=== PATIENT | female | born 1975 | race Caucasian/White ===

== ENCOUNTER → 2021-02-21 07:51 | Outpatient (CLI) | payer OTHER, SELFPAY ==
--- NOTE | 2021-02-21 07:53 | BI_ITS ---
MAMMOGRAPHY - BILATERAL SCREENING REASON FOR EXAM: Female, 45 years old. Routine annual screening examination. PERTINENT HISTORY: Non-contributory. TECHNIQUE: Digital bilateral breast kenroy (3D mammographic acquisition) in the CC and MLO projections. 2-D mediolateral oblique (MLO) and craniocaudad (CC) views of both breasts were obtained. CAD: Full Field Digital Mammography with Computer Added Detection was performed. COMPARISON: Comparison is made with prior outside examination of 01/08/2019. FINDINGS: Breast Composition: There are scattered areas of fibroglandular density. There are no dominant masses or suspicious calcifications. No other significant abnormalities are identified. There has been no significant change since the prior study. BI/SCRN MAMM (CAD)W/KENROY BILAT IMPRESSION: Stable bilateral screening mammogram. Yearly follow-up mammogram recommended. (A) ASSESSMENT CATEGORY: BIRADS Category 1: Negative. A letter regarding these results will be sent to the patient by the facility within 30 days. Approximately 10% of breast cancers are not detected by mammography. A normal mammogram should not delay biopsy of a clinically suspicious abnormality. [id number] Electronically Signed: Segun Luna MD at 11:04 EST , Service support ,
== END ==
PROVIDERS: PCP Internal Medicine; Referring Provider Internal Medicine; Visit Provider Internal Medicine
DX: Z12.31 Encounter for screening mammogram for malignant neoplasm of breast (principal)
CPT/HCPCS: 77063; 77067

== ENCOUNTER → 2021-07-05 | Outpatient (CLI) | payer OTHER, SELFPAY ==
[2021-07-10 20:06] LABS: HPV APTIMA, High Risk Negative (Negative)
== END | disposition home or self-care (01) ==
LOC: LABSPEC 13:08
PROVIDERS: PCP Internal Medicine; Visit Provider Obstetrics & Gynecology
DX: Z12.4 Encounter for screening for malignant neoplasm of cervix (principal)
CPT/HCPCS: 87624; 88175; G0145

== ENCOUNTER → 2022-03-06 | Outpatient (CLI) | payer OTHER, SELFPAY ==
--- NOTE | 2022-03-06 16:05 | BI_ITS ---
MAMMOGRAPHY - BILATERAL SCREENING REASON FOR EXAM: Female, 46 years old. Routine annual screening examination. PERTINENT HISTORY: Aunt with breast cancer. TECHNIQUE: Digital bilateral breast kenroy (3D mammographic acquisition) in the CC and MLO projections. 2-D mediolateral oblique (MLO) and craniocaudad (CC) views of both breasts were obtained. CAD: Full Field Digital Mammography with Computer Added Detection was performed. COMPARISON: Comparison is made with prior study dated 02/21/2021. FINDINGS: Breast Composition: There are scattered areas of fibroglandular density. There are no dominant masses or suspicious calcifications. Stable small benign appearing bilateral axillary nodes. No other significant abnormalities are identified. There has been no significant change since the prior study. BI/SCRN MAMM (CAD)W/KENROY BILAT IMPRESSION: Stable bilateral screening mammogram. Yearly follow-up mammogram recommended. (A) ASSESSMENT CATEGORY: BIRADS Category 2: Benign. A letter regarding these results will be sent to the patient by the facility within 30 days. Approximately 10% of breast cancers are not detected by mammography. A normal mammogram should not delay biopsy of a clinically suspicious abnormality. [id number] Electronically Signed: Segun Luna MD at 8:29 EST ,
== END | disposition home or self-care (01) ==
LOC: OPBI 16:03
PROVIDERS: PCP Internal Medicine; Referring Provider Obstetrics & Gynecology; Visit Provider Obstetrics & Gynecology
DX: Z12.31 Encounter for screening mammogram for malignant neoplasm of breast (principal); Z80.3 Family history of malignant neoplasm of breast
CPT/HCPCS: 77063; 77067

== ENCOUNTER → 2022-03-21 | Outpatient (CLI) | payer OTHER, SELFPAY ==
[2022-03-21 11:27] LABS: Absolute Lymphocyte Count 2.83 X10^3/uL (0.83-4.51); Absolute Neutrophil Count 3.1 X10^3/uL (2.0-7.7); Basophil# 0.04 X10^3/uL; Basophil% 0.6 % (0-1); Eosinophil# 0.08 X10^3/uL; Eosinophils% 1.2 % (0-5); Hematocrit 41.3 % (37-47); Hemoglobin 13.8 g/dL (12.0-15.0); Lymphocyte # 2.83 X10^3/ul (0.83-4.51); Lymphocyte % 43.6 % (19-41); Mean Corp Hgb Conc 33.4 g/dL (32-36); Mean Corpuscular Hgb 30.7 pg (27.0-32.0); Mean Platelet Vol. 9.9 fl (6.2-12.0); Monocyte# 0.48 X10^3/uL; Monocyte% 7.4 % (0-10); NRBC Flagged by Analyzer 0 % (0-5); Neutrophil # 3.05 X10^3/uL (2.7-7.7); Platelet Count 320 K/mm3 (150-450); RBC Distribution Width CV 12.7 % (11.6-14.6); RBC Distribution Width SD 43.3 fl (35.1-43.9); Red Blood Count 4.49 M/mm3 (4.2-5.4); White Blood Count 6.5 K/mm3 (4.4-11.0)
[2022-03-21 12:06] LABS: ALB/GLOB Ratio 0.9 RATIO (0.9-2.4); AST(SGOT) 43 U/L (15-37); Alanine Aminotransfer ALT/SGPT 72 U/L (13-56); Albumin, Serum 3.7 g/dL (3.2-5.0); Alkaline Phosphatase 57 U/L (45-117); Anion Gap 5 (5-15); BUN 10 mg/dL (7-18); BUN/Creat Ratio 16.8 RATIO (10-20); Calcium,Total 9.1 mg/dL (8.5-10.1); Chloride 106 mmol/L (98-107); Cholesterol 178 mg/dL (200); EST Glomerular Filtration Rate 114 mL/min (>60); Est Glom Filt Rate - Afr Amer 139 mL/min (>60); Glucose 95 mg/dL (74-106); High Density Lipoprotein 58 mg/dL; Potassium 4.1 mmol/L (3.5-5.1); Protein, Total 7.7 g/dL (6.4-8.2); Sodium Level 139 mmol/L (136-145); Triglycerides 193 mg/dL; Very Low Density Lipoprotein 39 mg/dL (5-40)
== END | disposition home or self-care (01) ==
LOC: LAB 10:20
PROVIDERS: PCP Internal Medicine; Referring Provider Internal Medicine; Visit Provider Internal Medicine
DX: Z00.00 Encounter for general adult medical examination without abnormal findings (principal)
CPT/HCPCS: 36415; 80053; 80061; 85025

== ENCOUNTER → 2022-03-27 | Outpatient (CLI) | payer OTHER, SELFPAY ==
--- NOTE | 2022-03-27 10:30 | EMB_PTH ---
PATIENT: JEANNIE SHANE LOC: [facility] U#:[id number] AGE/SX: 46/F ROOM: RE03/27/[address]: AMELIA Baron : 1975 BED: DIS: 03/27/2022 SPEC #: [id number] RECD: 03/27/22 11:35 STATUS: DANTE REShakira #: [id number] JOSLYN: 03/27/22 10:[address]: Rosangela Brar NP DEPT: SURGICAL PATHOLOGY RECD BY: Azalea Mijares ENTERED: 03/27/22 13:55 SP TYPE: ENDOM BX/C BETO DR: Dr. Errol Mccracken MD Tissues: Endometrium, NOS Procedures: Surgery Specimen Level IV HEADER OPERATION: Endometrial biopsy PRE-OP DIAGNOSIS: Abnormal uterine bleeding TISSUE SUBMITTED: Endometrial tissue MICROSCOPIC DIAGNOSIS Endometrial biopsy: Proliferative endometrium and blood clots. See comment. SANCHEZ:angel 03/28/2022 COMMENT The specimen predominantly consists of blood clots. MICROSCOPIC DESCRIPTION Slides are reviewed. GROSS DESCRIPTION Received is one container labeled with the patient's name and not further designated. The specimen consists of multiple irregular fragments of dark lopez-red soft tissue that in aggregate measure 6 x 5 x 0.2 cm. The specimen is totally submitted in two cassettes. / AM:angel 03/27/2022 :5 [facility]: [id number]
== END | disposition home or self-care (01) ==
LOC: LABSPEC 11:39
PROVIDERS: PCP Internal Medicine; Referring Provider Nurse Practitioner Women's Health; Visit Provider Nurse Practitioner Women's Health
DX: N93.9 Abnormal uterine and vaginal bleeding, unspecified (principal)
CPT/HCPCS: 88305

== ENCOUNTER → 2022-03-28 | Outpatient (CLI) | payer OTHER, SELFPAY ==
[2022-03-28 17:40] LABS: Hepatitis B Surface Antigen Non-Reactive (Nonreactive); Hepatitis C Antibody Non-Reactive (Nonreactive)
== END | disposition home or self-care (01) ==
LOC: BIMLAB 13:03
PROVIDERS: PCP Internal Medicine; Referring Provider Internal Medicine; Visit Provider Internal Medicine
DX: R74.8 Abnormal levels of other serum enzymes (principal)
CPT/HCPCS: 36415; 86803; 87340

== ENCOUNTER → 2022-04-11 | Outpatient (CLI) | payer OTHER, SELFPAY ==
--- NOTE | 2022-04-11 12:24 | US_ITS ---
STUDY: ULTRASOUND OF THE FEMALE PELVIS - COMPLETE REASON FOR EXAM: Female, 46 years old. BLEEDING LMP: 03/20/2022. TECHNIQUE: Transabdominal and Transvaginal TECHNICAL QUALITY: Adequate. COMPARISON: None. FINDINGS: The uterus is retroverted and is in a midline position. The uterus measures 10.5 cm x 5.9 cm x 5.6 cm. There is a Nabothian cyst of the cervix. The endometrium measures 6 mm in thickness, and is hyperechoic. There is no demonstrated endometrial mass. Multiple uterine fibroids are seen. The largest measures 3.6 x 3.9 signed by 4.1 cm. This is in the fundal portion of the uterus. I.U.D. - The patient does not have an I.U.D. The right ovary is visualized. The right ovary measures 2.4 cm x 1.7 cm x 1.3 cm. There is no right ovarian cyst or ovarian mass. There is no visualized right adnexal mass or complex lesion. There is normal arterial and normal venous vascularity. The left ovary is visualized. The left ovary measures 2.8 cm x 1 cm x 1.2 cm. There is no left ovarian cyst or ovarian mass. There is no visualized left adnexal mass or complex lesion. There is normal arterial and normal venous vascularity. There is no fluid in the cul-de-sac. The pre void volume of the bladder was 140 ml. US/Pelvic (Non ) IMPRESSION: Enlarged fibroid uterus. Electronically Signed: Segun Luna MD at 15:49 EST ,
== END | disposition home or self-care (01) ==
LOC: OPUS 12:21
PROVIDERS: PCP Internal Medicine; Referring Provider Nurse Practitioner Women's Health; Visit Provider Nurse Practitioner Women's Health
DX: D25.9 Leiomyoma of uterus, unspecified (principal); Z86.018 Personal history of other benign neoplasm; N93.9 Abnormal uterine and vaginal bleeding, unspecified
CPT/HCPCS: 76830; 76856

== ENCOUNTER → 2022-07-22 | Outpatient (CLI) | payer OTHER, SELFPAY ==
--- NOTE | 2022-07-22 08:18 | US_ITS ---
STUDY: ULTRASOUND OF THE FEMALE PELVIS - COMPLETE REASON FOR EXAM: Female, 46 years old. AUB - follow up fibroids LMP: June 27, 2022. TECHNIQUE: Transabdominal and Transvaginal TECHNICAL QUALITY: Adequate. COMPARISON: Comparison is made with prior study dated April 11, 2022. FINDINGS: The uterus is anteverted and is in a midline position. The uterus measures 10.4 cm x 7.3 cm x 5.7 cm. Normal uterine cervix. The endometrium measures 3.0 mm in thickness, and is hyperechoic. There is no demonstrated endometrial mass. Multiple fibroids are seen. The largest fibroid measures 4.4 cm x 4.3 cm x 3.3 cm. I.U.D. - The patient does not have an I.U.D. The right ovary is visualized. The right ovary measures 2.5 cm x 1.4 cm x 1.5 cm. There is no right ovarian cyst or ovarian mass. There is no visualized right adnexal mass or complex lesion. There is normal arterial and normal venous vascularity. The left ovary is visualized. The left ovary measures 1.6 cm x 1 cm x 1.7 cm. There is no left ovarian cyst or ovarian mass. There is no visualized left adnexal mass or complex lesion. There is normal arterial and normal venous vascularity. There is no fluid in the cul-de-sac. The pre void volume of the bladder was 236 ml. US/Pelvic w/ Transvaginal IMPRESSION: Multiple uterine fibroids. The largest measures 4.4 cm x 4.3 cm x 3.3 cm. Electronically Signed: Segun Luna MD at 14:21 EDT ,
== END | disposition home or self-care (01) ==
LOC: OPUS 08:17
PROVIDERS: PCP Internal Medicine; Referring Provider Nurse Practitioner Women's Health; Visit Provider Nurse Practitioner Women's Health
DX: N93.9 Abnormal uterine and vaginal bleeding, unspecified (principal)
CPT/HCPCS: 76830; 76856

== ENCOUNTER → 2023-03-07 | Outpatient (CLI) | payer OTHER, SELFPAY ==
--- NOTE | 2023-03-07 12:10 | BI_ITS ---
MAMMOGRAPHY - BILATERAL SCREENING 3-D TOMOSYNTHESIS REASON FOR EXAM: Female, 47 years old. Routine screening PERTINENT HISTORY: Aunt with breast cancer.. TECHNIQUE: 2-D mammograms and 3-D Tomosynthesis of the breast (s) were performed. CAD was performed. COMPARISON: 02/21/2021 FINDINGS: The breast composition is composed of scattered fibroglandular density. Scattered benign calcifications are seen. No dense spiculated masses or suspicious microcalcifications are identified. No architectural distortion is identified. There is no skin thickening or retraction. There has been no significant change since the prior study. BI/SCRN MAMM (CAD)W/KENROY BILAT IMPRESSION: No mammographic signs of malignancy. Routine yearly mammograms recommended. ASSESSMENT CATEGORY: BIRADS Category 1: Negative. A letter regarding these results will be sent to the patient by the facility within 30 days. FOLLOW UP RECOMMENDATION: Yearly follow up mammogram recommended. (A) Approximately 10% of breast cancers are not detected by mammography. A normal mammogram should not delay biopsy of a clinically suspicious abnormality. Electronically Signed: Serg Solano MD at 12:07 EST ,
== END | disposition home or self-care (01) ==
LOC: OPBI 12:10
PROVIDERS: PCP Internal Medicine; Referring Provider Obstetrics & Gynecology; Visit Provider Obstetrics & Gynecology
DX: Z12.31 Encounter for screening mammogram for malignant neoplasm of breast (principal); Z80.3 Family history of malignant neoplasm of breast
CPT/HCPCS: 77063; 77067

== ENCOUNTER 2023-03-20 13:18 | Outpatient (REF) | payer SELFPAY ==
[2023-03-20 13:19] VITALS: BP 128/74; PULSE 67; RESP 18; TEMP 36.3; O2SAT 100; BMI 31.8
--- NOTE | 2023-03-20 13:51 | EX.ED.DYSGE1 ---
HPI History of Present Illness Chief Complaint: Occup Expose Informant: patient Narrative Narrative: She is a 39-year-old female presenting with work related needlestick to her right hand. 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 She was getting handed a used large bore introducer needle for a vascular procedure when it somehow fell and stuck her right hand. She was wearing 2 pairs of gloves. She immediately took her gloves off wash her hands with soap and alcohol. She received a single puncture wound at the base of the right index finger. Denies any other complaints. As far she is aware the patient is low risk for blood-borne pathogens. Was sent to the ER per occupational health protocol for needlestick injury. [facility] Medical History Colon cancer screening Elevated liver enzymes History of hepatitis History of pneumonia Hypertension Preventative health residential Medications multivitamin-ferrous fumarate-folic acid 18 mg-400 mcg tablet (Centrum Complete) 1 tab PO DAILY 01/11/21 [History Last Taken Unknown] levonorgestrel 0.15 mg-ethinyl estradiol 0.03 mg tablet 1 tab PO DAILY #84 tabs 05/01/22 [Rx Last Taken Unknown] Allergy/AdvReac Type Severity Reaction Status Date / Time No Known Allergies Allergy Verified 03/20/23 13:19 Family History Mother Arthritis Blood clot in vein Cervical cancer Diabetes Aunt Diabetes Father Myocardial infarction, Onset Age: 46 Grandmother Thyroid disorder Surgical History History of cervical polypectomy Social History Smoking Status: Never smoker alcohol intake: never substance use type: does not use what type of physical activity do you participate in: none seatbelt use: always do you feel safe at home: Yes additional social history: - 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 [employer] ROS ROS ED Constitutional Constitutional ED: Denies chills or fever(s) Gastrointestinal Gastrointestinal: Denies nausea or vomiting Musculoskeletal Musculoskeletal: Denies arthralgias or myalgias Integumentary Reports other Details: Needlestick injury to right hand Hematologic/Lymphatic Hematologic/Lymphatic: Denies easy bleeding or easy bruising EXAM Physical Exam Const Vital Signs: 03/20/23 13:19 Temperature 97.3 F L Temperature Source Temporal Pulse Rate 67 Respiratory Rate 18 Blood Pressure 128/74 H Blood Pressure Mean 92 Pulse Ox 100 Oxygen Delivery Method Room Air Positive well nourished and well developed General Appearance ED: well developed and NAD HEENT Negative for trauma Neck supple Chest Wall inspection of chest normal Resp normal respiratory effort Extremity normal to inspection General Extremety ED: Negative for edema or tenderness General Extremity: Negative for edema Neuro oriented x3 Sensorium / Orientation: alert Psych mental status grossly normal Skin Skin Narrative: Needlestick injury to the palmar aspect of the proximal second finger, no active bleeding. MDM MDM MDM Narrative Medical decision making narrative: Evaluated for occupational needlestick/exposure to blood-borne pathogen. Protocol orders placed by nursing staff. At this time patient is comfortable deferring prophylactic antiviral therapy. Will follow-up with occupational health. Discharge Plan Triage Chief Complaint: Occup Expose ED Provider: Charlee Razo Dx/Rx/DC Orders Clinical Impression: Needle stick injury of finger Instructions: ED NEEDLE STICK Health Care Worker Prescriptions: No Action Centrum Complete 18-400 mg-mcg tablet 1 tab PO DAILY levonorgestrel-ethinyl estrad 0.15-0.03 mg tablet 1 tab PO DAILY Qty: 84 4RF Rx Instructions: take active pills only for 3 months at a time. Primary Care Provider: Errol Mccracken Referrals: Errol Mccracken MD [Primary Care Provider] - [facility] [Non-Staff] - As Needed Disposition Disposition: Home, Self Care
[2023-03-20 14:55] LABS: HIV - WCH Non-Reactive (Nonreactive); Hepatitis B Surface Antibody Non-Reactive; Hepatitis B Surface Antigen Non-Reactive (Nonreactive); Hepatitis C Antibody Non-Reactive (Nonreactive)
== END 2023-03-20 14:10 | disposition home or self-care (01) ==
LOC: ED 13:18
PROVIDERS: PCP Internal Medicine; Visit Provider Emergency Medicine
DX: S61.230A Puncture wound without foreign body of right index finger without damage to nail, initial encounter (principal); Z77.21 Contact with and (suspected) exposure to potentially hazardous body fluids; W46.0XXA Contact with hypodermic needle, initial encounter
CPT/HCPCS: 36415; 86703; 86706; 86803; 87340

== ENCOUNTER 2023-07-04 05:23 | Day surgery (SDC) | payer OTHER, SELFPAY ==
--- NOTE | 2023-07-04 | GASB_PTH ---
PATIENT: JEANNIE SHANE LOC: EN U#:[id number] AGE/SX: 47/F ROOM: RE07/04/[address]: Dr. Eduard Roblero DO : 1975 BED: DIS: 07/04/2023 SPEC #: [id number] RECD: 07/04/23 09:29 STATUS: DANTE RAZIA #: [id number] JOSLYN: 07/04/23 00:[address]: Eduard Roblero DEPT: SURGICAL PATHOLOGY RECD BY: Stanislav Tirado ENTERED: 07/04/23 09:30 SP TYPE: Gastric Bx OTHR DR: Dr. Errol Mccracken MD Tissues: A - Duodenum, NOS B - Gastric mucous membrane C - Esophageal mucous membrane D - Ileum, NOS Procedures: Special Stain Group II Surgery Specimen Level IV Alcian Blue/PAS (control) HEADER OPERATION: Colonoscopy, EGD, biopsy PRE-OP DIAGNOSIS: Gastroesophageal reflux disease, Colon cancer screening TISSUE SUBMITTED: A- Duodenum biopsy, B- Gastric body biopsy, C- Distal esophagus biopsy, D- Terminal ileum biopsy MICROSCOPIC DIAGNOSIS A. Duodenum, biopsy: Mild non-specific chronic inflammation. B. Gastric body, biopsy: Chronic gastritis, moderately severe. See comment. C. Distal esophagus, biopsy: Gastroesophageal junction with mild chronic inflammation and focal acute inflammation. No evidence of goblet cell metaplasia. See comment D. Terminal ileum, biopsy: No pathologic change. AM/mr 07/07/2023 COMMENT B. The results of immunohistochemistry for Helicobacter pylori will be reported separately ([id number]). C. Alcian blue/PAS stain with matched control supports the above diagnosis. MICROSCOPIC DESCRIPTION Slides are reviewed. GROSS DESCRIPTION A. Received in fixative is one container labeled with the patient's name and designated Duodenum biopsy. The specimen consists of multiple irregular fragments of light lopez soft tissue that in aggregate measure 1.0 x 0.3 x 0.1 cm. The specimen is totally submitted in one cassette. B. Received in fixative is one container labeled with the patient's name and designated Gastric body biopsy. The specimen consists of multiple irregular fragments of light lopez soft tissue that in aggregate measure 1.5 x 0.4 x 0.1 cm. The specimen is totally submitted in one cassette. C. Received in fixative is one container labeled with the patient's name and designated Distal esophagus biopsy. The specimen consists of multiple irregular fragments of light lopez soft tissue that in aggregate measure 1.0 x 0.3 x 0.1 cm. The specimen is totally submitted in one cassette. D. Received in fixative is one container labeled with the patient's name and designated Terminal ileum biopsy. The specimen consists of two irregular fragments of light lopez soft tissue that in aggregate measure 0.6 x 0.3 x 0.1 cm. The specimen is totally submitted in one cassette. SANCHEZ/ 07/04/2023 TC:3 CPT:88904v5,57716
[2023-07-04 05:54] LABS: Internal QC Validated? YES +Cl - CLEAR BKGD; Pregnancy, Urine Negative Negative
[2023-07-04 06:08] VITALS: BP 125/94; PULSE 71; RESP 16; TEMP 37.1; O2SAT 98; BMI 31.3
[2023-07-04] MEDS: Lactated Ringers 1,000 ML 15 ML IV (06:15)
--- NOTE | 2023-07-04 06:30 | IMM_PTH ---
PATIENT: JEANNIE SHANE LOC: EN U#:[id number] AGE/SX: 47/F ROOM: RE07/04/[address]: Dr. Eduard Roblero DO : 1975 BED: DIS: 07/04/2023 SPEC #: [id number] RECD: 07/04/23 10:21 STATUS: DANTE REQ #: [id number] JOSLYN: 07/04/23 06:[address]: Eduard Roblero DEPT: IMMUNOHISTOCHEMISTRY RECD BY: Angel Mcpherson ENTERED: 07/04/23 10:22 SP TYPE: IMMUNO OTHR DR: Dr. Errol Mccracken MD Tissues: B - Stomach, NOS Procedures: H Pylori (initial) PHYSICIAN & INSTITUTION [place] [id number] SPECIMEN INFORMATION: Tissue Source: B- Gastric body Clinical Info: Gastroesophageal reflux disease, colon cancer screening Specimen Number: [id number] CPT code: 55512 METHODOLOGY: Deparaffinized sections of prefer/formalin-fixed tissue or PAP/DQ stained slides are incubated with monoclonal/polyclonal antibodies/oligonucleotide probes. Localization is made via biotin free immunoperoxidase method. Appropriate controls are performed and reacted as expected. Results on target cell population are indicated in the following table: RESULTS: ANTIBODY / CLONE RESULT Block B H Pylori (polyclonal) positive These tests were developed and their performance characteristics determined by [facility]. They may not have been cleared or approved by the U.S. Food and Drug Administration. The FDA has determined that such clearance or approval is not necessary. The above immunohistochemical/dualISH markers are ordered and reviewed by the Pathologist. INTERPRETATION: B. Gastric body, biopsy: Positive for abundant H. pylori organisms. CHRIS/ 07/07/2023
--- NOTE | 2023-07-04 06:41 | HP.PCM_ITS ---
History and Physical Date of Admission: 07/04/23 47 F who presents to the office today for initial consult. Pt reports long hx of heartburn. Worse when eating sour, spicy or fried foods. No dysphagia, nausea, vomiting or abdominal pain. Has not taken any meds rx'd or OTC. No other GI concerns. Needs screening colonscopy. ROS Const Constitutional: No fatigue ENT ENT: No difficulty swallowing Gastro GI: Positive for constipation; No abdominal pain, belching, bloating, change in bowel habits, change in stool character, coffee ground emesis, cramping, diarrhea, heartburn, difficulty swallowing, feeling full early, excessive flatus, incontinent of stools, Vomiting blood/hematemesis, Blood in stool, loose stools, Black,tarry stools, nausea/dyspepsia, pain with swallowing, vomiting or other Musc Musculoskeletal: No joint pain Skin Skin: No yellowing of the eye or itchy eyes Psych Psychiatric: No anxiety and No depression Endo Endocrine: No fatigue Aller/Imm Allergy/Immunologic: No itchy eyes Torres/Lymp Hematologic/Lymphatic: No easy bleeding or easy bruising Exam Const General: cooperative, comfortable and no acute distress Orientation: alert, awake and oriented x3 HENMT Head: normal to inspection, normocephalic and atraumatic Ears: hearing grossly normal bilaterally Eyes General: appearance normal, both eyes and all related structures Neck Neck: normal visual inspection, full ROM and supple Resp Effort & Inspection: normal respiratory effort and able to speak in complete sentences Auscultation: Bilateral: Clear to Auscultation Cardio Rate: regular rate Rhythm: regular rhythm Heart Sounds: S1 normal and S2 normal GI Palpation: soft (Nontender, no palpable organomegaly) Neuro General: patient alert, patient awake, patient oriented x3, moves all extremities and CN's II-XI intact bilaterally Extrem General: no clubbing, cyanosis or edema Psych Appearance: grossly normal Mental Status: mental status grossly normal Mood: congruent mood Affect: normal affect Quality Reporting Tobacco Screening ([facility] 138) Smoking Status: Never smoker Assessment and Plan Assessment and Plan (1) Gastroesophageal reflux disease: Plan: She does have signs and symptoms of gastroesophageal reflux disease due to the fact that she has problems with certain foods including acidic foods and not acidic foods. Since she is undergoing colonoscopy we will perform an upper endoscopy to evaluate her for Stephenson's esophagus, structural disease such as a hiatal hernia, peptic ulcer disease and any signs of villous atrophy. (2) Colon cancer screening: Status: Acute Plan: She will undergo colorectal screening. She was explained alternatives, risk, benefits including not withstanding bleeding, infection, sepsis, perforation, need for emergent surgery and . She will have an ASA of 2. I have examined the patient and the H&P has been reviewed. There are no clinical changes since date of exam.
[2023-07-04 07:19] VITALS: BP 103/58; BP 125/94; PULSE 61; RESP 16; TEMP 36.2; O2SAT 98
[2023-07-04 07:24] VITALS: BP 109/62; BP 125/94; PULSE 53; RESP 16; O2SAT 99
--- NOTE | 2023-07-04 07:28 | OP.EGD_ITS ---
Patient Name: oLve Sanz Procedure Date: 07/04/2023 6:28 AM Date of : 1975 Age: 47 Procedure: Upper GI endoscopy Indications: Epigastric abdominal pain, Heartburn Providers: Eduard Roblero DO Referring MD: Erorl Mccracken MD Medicines: Monitored Anesthesia Care Patient Profile: This is a 47 year old female. Refer to note in patient chart for documentation of history and physical. Patient has symptoms of chronic epigastric abdominal pain and chronic heartburn. Complications: No immediate complications. Procedure: Pre-Anesthesia Assessment: - Prior to the procedure, a History and Physical was performed, and patient medications and allergies were reviewed. The risks and benefits of the procedure and the sedation options and risks were discussed with the patient. All questions were answered and informed consent was obtained. Patient identification and proposed procedure were verified by the physician in the pre-procedure area. Mental Status Examination: alert and oriented. Airway Examination: normal oropharyngeal airway and neck mobility. Prophylactic Antibiotics: The patient does not require prophylactic antibiotics. Prior Anticoagulants: The patient has taken no anticoagulant or antiplatelet agents. ASA Grade Assessment: II - A patient with mild systemic disease. After reviewing the risks and benefits, the patient was deemed in satisfactory condition to undergo the procedure. The anesthesia plan was to use monitored anesthesia care (MAC). Immediately prior to administration of medications, the patient was re-assessed for adequacy to receive sedatives. The heart rate, respiratory rate, oxygen saturations, blood pressure, adequacy of pulmonary ventilation, and response to care were monitored throughout the procedure. The physical status of the patient was re-assessed after the procedure. After obtaining informed consent, the endoscope was passed under direct vision. Throughout the procedure, the patient's blood pressure, pulse, and oxygen saturations were monitored continuously. The colonoscope was introduced through the mouth, and advanced to the second part of duodenum. The upper GI endoscopy was accomplished without difficulty. The patient tolerated the procedure well. Scope In: 6:45:41 AM Scope Out: 6:54:08 AM Total Procedure Duration Time 0 hours 8 minutes 27 seconds Findings: The Z-line was irregular and was found 40 cm from the incisors. Biopsies were taken with a cold forceps for histology. Verification of patient identification for the specimen was done. Estimated blood loss was minimal. Patchy mild inflammation characterized by erythema was found in the gastric body. Biopsies were taken with a cold forceps for histology. Verification of patient identification for the specimen was done. Estimated blood loss was minimal. Biopsies were taken with a cold forceps for Helicobacter pylori testing. Verification of patient identification for the specimen was done. Estimated blood loss was minimal. No gross lesions were noted in the duodenal bulb and in the first portion of the duodenum. Biopsies were taken with a cold forceps for histology. Verification of patient identification for the specimen was done. Estimated blood loss was minimal. Impression: - Z-line irregular, 40 cm from the incisors. Biopsied. - Chronic gastritis. Biopsied. - No gross lesions in the duodenal bulb and in the first portion of the duodenum. Biopsied. Recommendation: - Discharge patient to home. - Resume previous diet. - Continue present medications. - Await pathology results. Procedure Code(s): --- Professional --- 64689, Esophagogastroduodenoscopy, flexible, transoral; with biopsy, single or multiple CPT copyright 2021 [employer]. All rights reserved. The codes documented in this report are preliminary and upon detasseling crew supervisor review may be revised to meet current compliance requirements. Eduard Roblero DO 07/04/2023 7:27:51 AM This report has been signed electronically. Number of Addenda: 0 Note Initiated On: 07/04/2023 6:28 AM
[2023-07-04 07:29] VITALS: BP 107/70; BP 125/94; PULSE 51; RESP 16; O2SAT 100
--- NOTE | 2023-07-04 07:29 | OP.CCLET_ITS ---
07/04/2023 Errol Mccracken MD [address] [place] [address] [place] [address] Re : Upper GI endoscopy procedure for Love Sanz Dear Dr. Mccracken This procedure was performed on Tuesday, July 04, 2023. My impressions and recommendations are as follows: Impressions : - Z-line irregular, 40 cm from the incisors. Biopsied. - Chronic gastritis. Biopsied. - No gross lesions in the duodenal bulb and in the first portion of the duodenum. Biopsied. Recommendations : - Discharge patient to home. - Resume previous diet. - Continue present medications. - Await pathology results. My findings are described in the full procedure note, which is enclosed. If I can be of further assistance, please feel free to contact me at . Sincerely, Eduard Roblero, 07/04/2023 7:27:51 AM This report has been signed electronically.
--- NOTE | 2023-07-04 07:30 | OP.CCLET_ITS ---
07/04/2023 Errol Mccracken MD [address] [place] [address] [place] [address] Re : Colonoscopy procedure for Love Sanz Dear Dr. Mccracken This procedure was performed on Tuesday, July 04, 2023. My impressions and recommendations are as follows: Impressions : - Hemorrhoids found on perianal exam. - The entire examined colon is normal. - Mild inflammation was found in the ileum secondary to ileitis. Biopsied. Recommendations : - Discharge patient to home. - Resume previous diet. - Continue present medications. - Await pathology results. - Repeat colonoscopy in 10 years for screening purposes. My findings are described in the full procedure note, which is enclosed. If I can be of further assistance, please feel free to contact me at . Sincerely, Eduard Friend, 07/04/2023 7:30:25 AM This report has been signed electronically.
--- NOTE | 2023-07-04 07:30 | OP.COLON_ITS ---
Patient Name: Love Sanz Procedure Date: 07/04/2023 6:54 AM Date of : 1975 Age: 47 Procedure: Colonoscopy Indications: Screening for colorectal malignant neoplasm Providers: Eduard Roblero DO Referring MD: Errol Mccracken MD Medicines: Monitored Anesthesia Care Patient Profile: This is a 47 year old female. Refer to note in patient chart for documentation of history and physical. Patient has symptoms of chronic epigastric abdominal pain and chronic heartburn. Last Colonoscopy: none. The patient's first colonoscopy is today. Complications: No immediate complications. Procedure: Pre-Anesthesia Assessment: - Prior to the procedure, a History and Physical was performed, and patient medications and allergies were reviewed. The risks and benefits of the procedure and the sedation options and risks were discussed with the patient. All questions were answered and informed consent was obtained. Patient identification and proposed procedure were verified by the physician in the pre-procedure area. Mental Status Examination: alert and oriented. Airway Examination: normal oropharyngeal airway and neck mobility. Prophylactic Antibiotics: The patient does not require prophylactic antibiotics. Prior Anticoagulants: The patient has taken no anticoagulant or antiplatelet agents. ASA Grade Assessment: II - A patient with mild systemic disease. After reviewing the risks and benefits, the patient was deemed in satisfactory condition to undergo the procedure. The anesthesia plan was to use monitored anesthesia care (MAC). Immediately prior to administration of medications, the patient was re-assessed for adequacy to receive sedatives. The heart rate, respiratory rate, oxygen saturations, blood pressure, adequacy of pulmonary ventilation, and response to care were monitored throughout the procedure. The physical status of the patient was re-assessed after the procedure. After I obtained informed consent, the scope was passed under direct vision. Throughout the procedure, the patient's blood pressure, pulse, and oxygen saturations were monitored continuously. The colonoscope was introduced through the anus and advanced to the terminal ileum. The colonoscopy was performed without difficulty. The patient tolerated the procedure well. The quality of the bowel preparation was adequate. The terminal ileum, ileocecal valve, appendiceal orifice, and rectum were photographed. Scope In: 6:56:36 AM Scope Withdrawal Time 0 hours 11 minutes 50 seconds Scope Out: 7:12:00 AM Total Procedure Duration Time 0 hours 15 minutes 24 seconds Findings: Hemorrhoids were found on perianal exam. The colon (entire examined portion) appeared normal. Localized mild inflammation characterized by erosions, erythema and friability was found in the terminal ileum. Biopsies were taken with a cold forceps for histology. Verification of patient identification for the specimen was done. Estimated blood loss was minimal. Impression: - Hemorrhoids found on perianal exam. - The entire examined colon is normal. - Mild inflammation was found in the ileum secondary to ileitis. Biopsied. Recommendation: - Discharge patient to home. - Resume previous diet. - Continue present medications. - Await pathology results. - Repeat colonoscopy in 10 years for screening purposes. Procedure Code(s): --- Professional --- 18604, Colonoscopy, flexible; with biopsy, single or multiple CPT copyright 2021 [employer]. All rights reserved. The codes documented in this report are preliminary and upon mule developer review may be revised to meet current compliance requirements. Eduard Roblero DO 07/04/2023 7:30:25 AM This report has been signed electronically. Number of Addenda: 0 Note Initiated On: 07/04/2023 6:54 AM
[2023-07-04 07:35] VITALS: BP 116/75; BP 125/94; PULSE 56; RESP 16; TEMP 36.5; O2SAT 100
[2023-07-04 07:50] VITALS: BP 125/94
== END 2023-07-04 08:06 | disposition home or self-care (01) ==
LOC: EN 05:25 → AC 05:25
PROVIDERS: Anesthesiology; PCP Internal Medicine; Referring Provider Internal Medicine; Visit Provider Internal Medicine Gastroenterology
PROC: 0DJD8ZZ Inspection of Lower Intestinal Tract, Via Natural or Artificial Opening Endoscopic (ICD-10-PCS; CPT 45378; principal; 2023-07-04 06:25)
DX: Z12.11 Encounter for screening for malignant neoplasm of colon (principal); K21.9 Gastro-esophageal reflux disease without esophagitis; B96.81 Helicobacter pylori [H. pylori] as the cause of diseases classified elsewhere; K29.50 Unspecified chronic gastritis without bleeding; K64.9 Unspecified hemorrhoids; K52.9 Noninfective gastroenteritis and colitis, unspecified
CPT/HCPCS: 45380; 43239; 81025; 88305; 88313; 88342; J7120; J2405

== ENCOUNTER → 2023-10-10 | Outpatient (CLI) | payer OTHER, SELFPAY ==
[2023-10-12 15:07] LABS: H. PYLORI STOOL AG Negative (Negative)
== END | disposition home or self-care (01) ==
PROVIDERS: PCP Internal Medicine; Visit Provider Internal Medicine Gastroenterology
DX: A04.8 Other specified bacterial intestinal infections (principal)
CPT/HCPCS: 87338

== ENCOUNTER → 2023-10-14 | Outpatient (CLI) | payer OTHER, SELFPAY | END | disposition home or self-care (01) | LOC: LABSPEC 16:34 | PROVIDERS: PCP Internal Medicine; Referring Provider Obstetrics & Gynecology; Visit Provider Obstetrics & Gynecology | DX: N89.8 Other specified noninflammatory disorders of vagina (principal) | CPT/HCPCS: 87070; 87205 ==

== ENCOUNTER → 2023-10-31 | Outpatient (CLI) | payer OTHER, SELFPAY ==
--- NOTE | 2023-10-31 16:09 | US_ITS ---
EXAM: US PELVIS TRANSABDOMINAL LIMITED AND TRANSVAGINAL CLINICAL INDICATION: fibroid uterus TECHNIQUE: Transabdominal (limited) and transvaginal pelvic ultrasound was performed with grayscale and color Doppler imaging. Transvaginal imaging was used for better evaluation of the endometrium and adnexa. COMPARISON: 07/22/2022 FINDINGS: UTERUS/CERVIX: There are multiple predominantly intramural uterine fibroids identified, the 3 largest measure 4.0, 1.8, and 1.9 cm respectively. Subjectively, similar appearance of the uterus compared to the prior ultrasound. Anteverted. The uterus measures 10.1 x 6.7 x 5.8 cm. The endometrial stripe measures 0.2 cm in thickness. RIGHT OVARY: No significant abnormality. Blood flow is present in the right ovary. The right ovary measures 0.9 x 1.1 x 1.4 cm. LEFT OVARY: No significant abnormality. Blood flow is present in the left ovary. The left ovary measures 2.2 x 1.2 x 1.3 cm. FREE FLUID: None. BLADDER: Urinary bladder appears normal. US/Pelvic w/ Transvaginal IMPRESSION: There are multiple predominantly intramural uterine fibroids identified, the 3 largest measure 4.0, 1.8, and 1.9 cm respectively. Subjectively, similar appearance of the uterus compared to the prior ultrasound. Electronically Signed: Mack Roberts DO at 15:42 EDT ,
== END | disposition home or self-care (01) ==
LOC: US 16:08
PROVIDERS: PCP Internal Medicine; Referring Provider Obstetrics & Gynecology; Visit Provider Obstetrics & Gynecology
DX: D25.9 Leiomyoma of uterus, unspecified (principal); Z86.018 Personal history of other benign neoplasm
CPT/HCPCS: 76830; 76856

== ENCOUNTER 2023-11-19 08:24 | Outpatient (RCR) | payer OTHER, SELFPAY | END 2023-12-15 23:59 | LOC: NS 08:24 | PROVIDERS: PCP Internal Medicine; Referring Provider Obstetrics & Gynecology; Visit Provider Obstetrics & Gynecology | DX: Z71.3 Dietary counseling and surveillance (principal); E66.9 Obesity, unspecified; Z68.32 Body mass index [BMI] 32.0-32.9, adult | CPT/HCPCS: 97802 ==

== ENCOUNTER 2024-01-22 07:52 | Outpatient (RCR) | payer OTHER, SELFPAY | END 2024-02-14 23:59 | LOC: NS 07:52 | PROVIDERS: PCP Internal Medicine; Referring Provider Obstetrics & Gynecology; Visit Provider Obstetrics & Gynecology | DX: Z71.3 Dietary counseling and surveillance (principal); E66.9 Obesity, unspecified; Z68.32 Body mass index [BMI] 32.0-32.9, adult | CPT/HCPCS: 97803 ==

== ENCOUNTER 2024-03-04 09:27 | Outpatient (RCR) | payer OTHER, SELFPAY | END 2024-03-16 23:59 | LOC: NS 09:27 | PROVIDERS: PCP Internal Medicine; Referring Provider Obstetrics & Gynecology; Visit Provider Obstetrics & Gynecology | DX: Z71.3 Dietary counseling and surveillance (principal); E66.9 Obesity, unspecified; Z68.32 Body mass index [BMI] 32.0-32.9, adult | CPT/HCPCS: 97803 ==

== ENCOUNTER → 2024-03-08 | Outpatient (CLI) | payer OTHER, SELFPAY ==
--- NOTE | 2024-03-08 15:36 | BI_ITS ---
MAMMOGRAPHY - BILATERAL SCREENING 3-D TOMOSYNTHESIS REASON FOR EXAM: Female, 48 years old. screening mammogram PERTINENT HISTORY: No significant family history. TECHNIQUE: 2-D mammograms and 3-D Tomosynthesis of the breast (s) were performed. CAD was performed. COMPARISON: 03/07/2023 FINDINGS: The breast composition is heterogeneously dense that can obscure small breast masses. Scattered benign calcifications are seen. No dense spiculated masses or suspicious microcalcifications are identified. No architectural distortion is identified. There is no skin thickening or retraction. There has been no significant change since the prior study. BI/SCRN MAMM (CAD)W/KENROY BILAT IMPRESSION: No mammographic signs of malignancy. Routine yearly mammograms recommended. ASSESSMENT CATEGORY: BIRADS Category 1: Negative. A letter regarding these results will be sent to the patient by the facility within 30 days. FOLLOW UP RECOMMENDATION: Yearly follow up mammogram recommended. (A) Approximately 10% of breast cancers are not detected by mammography. A normal mammogram should not delay biopsy of a clinically suspicious abnormality. Electronically Signed: Avery Mccord MD at 18:04 EST ,
== END | disposition home or self-care (01) ==
LOC: OPBI 15:36
PROVIDERS: PCP Internal Medicine; Referring Provider Obstetrics & Gynecology; Visit Provider Obstetrics & Gynecology
DX: Z12.31 Encounter for screening mammogram for malignant neoplasm of breast (principal)
CPT/HCPCS: 77063; 77067

== ENCOUNTER 2024-05-11 16:25 | Outpatient (RCR) | payer OTHER, SELFPAY | END 2024-05-14 23:59 | LOC: NS 16:25 | PROVIDERS: PCP Internal Medicine; Referring Provider Obstetrics & Gynecology; Visit Provider Obstetrics & Gynecology | DX: Z71.3 Dietary counseling and surveillance (principal); E66.9 Obesity, unspecified; Z68.32 Body mass index [BMI] 32.0-32.9, adult | CPT/HCPCS: 97803 ==

== ENCOUNTER 2024-06-10 09:25 | Outpatient (RCR) | payer OTHER, SELFPAY | END 2024-06-14 23:59 | LOC: NS 09:25 | PROVIDERS: PCP Internal Medicine; Referring Provider Obstetrics & Gynecology; Visit Provider Obstetrics & Gynecology | DX: Z71.3 Dietary counseling and surveillance (principal); E66.9 Obesity, unspecified; Z68.32 Body mass index [BMI] 32.0-32.9, adult | CPT/HCPCS: 97803 ==

== ENCOUNTER → 2024-12-03 | Outpatient (CLI) | payer OTHER, SELFPAY ==
[2024-12-10 15:08] LABS: HPV APTIMA, High Risk Negative (Negative)
== END | disposition home or self-care (01) ==
LOC: LABSPEC 14:56
PROVIDERS: PCP Internal Medicine; Referring Provider Obstetrics & Gynecology; Visit Provider Obstetrics & Gynecology
DX: Z12.4 Encounter for screening for malignant neoplasm of cervix (principal)
CPT/HCPCS: 87624; 88175; G0145

== ENCOUNTER → 2024-12-07 | Outpatient (CLI) | payer OTHER, SELFPAY ==
--- OUTSIDE RECORDS SUMMARY | 2024-12-07 06:36 | XMS RPT_ITS | CCD ---
Author Organization [facility] Care Team Providers Care [employer] Consultant Name Role Phone Unavailable Primary Care Provider Dr. Errol Meza Primary Care Provider 1(33 [phone]) Dr. Errol Mccracken Referring Provider 1(330)2 Dr. Ely Arreola Attending Provider 1(330 ) Dr. Errol Mccracken Primary Care Provider 1(33 0) Dr. Errol Mccracken Attending Provider 1(330)2 Dr. Errol Mccracken Referring Provider 1(330)2 AMELIA Brar NP Attending Provider 1(330 ) Dr. Errol Mccracken Primary Care Provider 1(33 0) Dr. Errol Mccracken Referring Provider 1(330)2 Dr. Makayla Jaime Attending Provider 1(3 30) Dr. Errol Mccracken Primary Care Provider 1(33 0) Dr. Errol Mccracken Attending Provider 1(330)2 Dr. Errol Mccracken Referring Provider 1(330)2 Dr. Errol Mccracken Primary Care Provider 1(33 0) Dr. Errol Mccracken Referring Provider 1(330)2 Dr. Eduard Roblero Attending Provider 1(330) Dr. Eduard Roblero Other Provider 1(330)- Dr. Errol Mccracken MD Primary Care Provider Winnie Sapp DO, Dr. Benavides Attending Provider Winnie Sapp DO, Dr. Benavides Referring Provider Nawaf CARLSON, Dr. Norton Primary Care Provider Winnie Sapp DO, Dr. Benavides Attending Provider Winnie Sapp DO, Dr. Benavides Referring Provider Nawaf CARLSON, Dr. Norton Referring Provider Micky Velasquez Attending Provider Oleghe, Efewongbe Primary Care Unavailable Micky Velasquez Attending Unavailable Oleghe, Efewongbe Referring Unavailable Oleghe, Efewongbe Primary Care Unavailable Oleghe, Efewongbe Referring Unavailable Vande Velde, Makayla Attending Unavailabl e Vande Velde, Makayla Attending Unavailabl e Oleghe, Efewongbe Primary Care Unavailable Vande Velde, Makayla Referring Unavailabl e Vande Velde, Makayla Attending Unavailabl e Oleghe, Efewongbe Primary Care Unavailable Vande Velde, Makayla Referring Unavailabl e Vande Velde, Makayla Referring Unavailabl e Oleghe, Efewongbe Primary Care Unavailable Vande Velde, Makayla Attending Unavailabl e Vande Velde, Makayla Attending Unavailabl e Oleghe, Efewongbe Primary Care Unavailable Vande Velde, Makayla Referring Unavailabl e Vande Velde, Makayla Attending Unavailabl e Oleghe, Efewongbe Primary Care Unavailable Vande Velde, Makayla Referring Unavailabl e Vande Velde, Makayla Attending Unavailabl e Oleghe, Efewongbe Primary Care Unavailable Vande Velde, Makayla Referring Unavailabl e Vande Velde, Makayla Attending Unavailabl e Oleghe, Efewongbe Primary Care Unavailable Vande Velde, Makayla Referring Unavailabl e Vande Velde, Makayla Attending Unavailabl e Oleghe, Efewongbe Primary Care Unavailable Vande Velde, Makayla Referring Unavailabl e Medications Current Medications Medication Drug Class(es) Dates Sig (Normalized) Sig (Original) multivitamin tablet (1 source) take 1 tablet by mouth once daily multivitamin tablet Take 1 tablet by mouth daily. 0 Active Sawtrfjhvlff-Cjyj-Gi lic Acid (Centrum Complete) 18-400 mg-mcg tablet (12 sources) Start: 01-11-2021 take 1 tablet by mouth once daily Mzgfurntkceb-Acyu-V olic Acid (Centrum Complete) 18-400 mg-mcg tablet Active 1 TABLET PO DAILY January 11, 2021 4:53pm Start: 01-11-2021 End: 10-05-2024 Zttrumevadws-Vlih-Hhwxd Acid (Centrum Complete) 18-400 mg-mcg tablet Discontinued 1 {tbl} PO DAILY January 11, 2021 12:00am October 05, 2024 8:31am Start: 01-11-2021 Multivitamin-I geovanni-Folic Acid (Centrum Complete) 18-400 mg-mcg tablet Active 1 {tbl} PO DAILY January 11, 2021 12:00am Start: 01-11-2021 take 1 tablet by cora th once daily Dvjvtltyzvqu-Pteq-Becqk Acid (Centrum Complete) 18-400 mg-mcg tablet Active 1 TABLET PO DAILY January 11, 2021 12:00am Start: 01-11-2021 take 1 tablet by cora th once daily Fednznhliqvi-Wqek-Orzck Acid (Centrum Complete) 18-400 mg-mcg tablet Active 1 TABLET PO DAILY January 10, 2021 11:00pm tobramycin 3 mg/ml ophthalmic solution (1 source) Aminoglycoside Antibacterial Start: 10-05-2024 Tobramycin 0.3 % drops Active 1 NMA OPHTHALMIC Q2H 5 0 October 05, 2024 12:00am to affected eye while awake first 24 hours, then 3x/day on days 2-5 Completed/Discontinued Medications Medication Drug Class(es) Dates Sig (Normalized) Sig (Original) amoxicillin 500 mg oral capsule (2 sources) Penicillin-class Antibacterial Start: 07-11-2023 End: 08-20-2023 take 1 capsule by mouth twice daily Amoxicillin 500 mg capsule Discontinued 500 mg PO TWICE A DAY 28 0 July 11, 2023 12:00am August 20, 2023 3:53pm bismuth subsalicylate 262 mg oral tablet (2 sources) Bismuth Start: 07-11-2023 End: 08-20-2023 take 1 tablet by mouth every eight hours as needed for diarrhea Bismuth Subsalicylate 262 mg tablet Discontinued 524 mg PO Q8H as needed for diarrhea 42 0 July 11, 2023 12:00am August 20, 2023 3:54pm clarithromycin 500 mg oral tablet (2 sources) Macrolide Antimicrobial Start: 07-11-2023 End: 08-20-2023 take 1 tablet by mouth twice daily Clarithromycin 500 mg tablet Discontinued 500 mg PO TWICE A DAY 28 July 11, 2023 12:00am August 20, 2023 3:54pm Levonorgestrel-Ethi nyl Estrad (20 sources) Progestin, Estrogen, Progestin-containi ng Intrauterine Device Start: 10-14-2023 End: 10-05-2024 take 1 tablet by mouth once daily Levonorgestrel-Ethiny l Estrad 0.15-0.03 mg tablet Discontinued 1 {tbl} PO DAILY 84 4 October 14, 2023 3:35pm October 05, 2024 8:31am Gastroesophageal reflux disease Gastro-esophageal reflux disease without esophagitis take active pills only for 3 months at a time. Start: 10-14-2023 take 1 tablet by cora th once daily Levonorgestrel-Ethinyl Estrad 0.15-0.03 mg tablet Active 1 {tbl} PO DAILY 84 October 14, 2023 3:35pm take active pills only for 3 months at a time. Start: 07-18-2023 End: 10-14-2023 take 1 tablet by mouth once daily Levonorgestrel-Ethinyl Estrad 0.15-0.03 mg tablet Discontinued 1 {tbl} PO DAILY 84 0 July 18, 2023 3:30pm October 14, 2023 3:35pm Gastroesophageal reflux disease Gastro-esophageal reflux disease without esophagitis take active pills only for 3 months at a time. Start: 07-18-2023 End: 10-14-2023 take 1 tablet by mouth once daily Levonorgestrel-Ethinyl Estrad 0.15-0.03 mg tablet Discontinued 1 {tbl} PO DAILY 84 July 18, 2023 3:30pm October 14, 2023 3:35pm take active pills only for 3 months at a time. Start: 05-01-2022 End: 07-18-2023 take 1 tablet by mouth once daily Levonorgestrel-Ethinyl Estrad 0.15-0.03 mg tablet Discontinued 1 {tbl} PO DAILY 84 May 01, 2022 10:05am July 18, 2023 3:31pm take active pills only for 3 months at a time. Start: 05-01-2022 End: 07-18-2023 take 1 tablet by mouth once daily Levonorgestrel-Ethinyl Estrad 0.15-0.03 mg tablet Discontinued 1 {tbl} PO DAILY May 01, 2022 10:05am July 18, 2023 3:31pm take active pills only for 3 months at a time. Start: 05-01-2022 take 1 tablet by cora th once daily Levonorgestrel-Ethinyl Estrad Active 1 TABLET PO DAILY May 01, 2022 9:05am take active pills only for 3 months at a time. Start: 05-01-2022 take 1 tablet by cora th once daily Levonorgestrel-Ethinyl Estrad Active 1 TABLET PO DAILY May 01, 2022 10:05am take active pills only for 3 months at a time. Start: 02-28-2022 End: 05-01-2022 take 1 tablet by mouth once daily Levonorgestrel-Ethinyl Estrad 0.15-0.03 mg tablet Discontinued 0 PO .COMPLEX 84 February 28, 2022 3:38pm May 01, 2022 10:06am take 1 tablet daily following the order on blister card(s) PO Start: 02-28-2022 End: 05-01-2022 take 1 tablet by mouth once daily Levonorgestrel-Ethinyl Estrad 0.15-0.03 mg tablet Discontinued 0 PO .COMPLEX February 28, 2022 3:38pm May 01, 2022 10:06am take 1 tablet daily following the order on blister card(s) PO Start: 02-28-2022 End: 05-01-2022 take 1 tablet by mouth once daily Levonorgestrel-Ethinyl Estrad Discontinued 0 PO .COMPLEX February 28, 2022 2:38pm May 01, 2022 9:06am take 1 tablet daily following the order on blister card(s) PO Start: 02-28-2022 End: 05-01-2022 take 1 tablet by mouth once daily Levonorgestrel-Ethinyl Estrad Discontinued 0 PO .COMPLEX 84 February 28, 2022 3:38pm May 01, 2022 10:06am take 1 tablet daily following the order on blister card(s) PO Start: 02-28-2022 take 1 tablet by cora th once daily Levonorgestrel-Ethinyl Estrad Active 0 P O .COMPLEX February 28, 2022 2:38pm take 1 tablet daily following the order on blister card(s) PO Start: 07-09-2021 End: 02-28-2022 take 1 tablet by mouth once daily Levonorgestrel-Ethinyl Estrad 0.15-0.03 mg tablet Discontinued 0 PO .COMPLEX July 09, 2021 7:51am February 28, 2022 3:38pm take 1 tablet daily following the order on blister card(s) PO Start: 07-09-2021 End: 02-28-2022 take 1 tablet by mouth once daily Levonorgestrel-Ethinyl Estrad 0.15-0.03 mg tablet Discontinued 0 PO .COMPLEX 84 July 09, 2021 7:51am February 28, 2022 3:38pm take 1 tablet daily following the order on blister card(s) PO Start: 07-09-2021 End: 02-28-2022 take 1 tablet by mouth once daily Levonorgestrel-Ethinyl Estrad Discontinued 0 PO .COMPLEX July 09, 2021 7:51am February 28, 2022 3:38pm take 1 tablet daily following the order on blister card(s) PO Start: 07-09-2021 End: 02-28-2022 take 1 tablet by mouth once daily Levonorgestrel-Ethinyl Estrad Discontinued 0 PO .COMPLEX 84 July 09, 2021 6:51am February 28, 2022 2:38pm take 1 tablet daily following the order on blister card(s) PO Start: 07-09-2021 take 1 tablet by cora th once daily Levonorgestrel-Ethinyl Estrad Active 0 P O .COMPLEX July 09, 2021 7:51am take 1 tablet daily following the order on blister card(s) PO Start: 01-11-2021 End: 07-09-2021 take 1 tablet by mouth once daily Levonorgestrel-Ethinyl Estrad 0.15-0.03 mg tablet Discontinued 0 PO .[place] [id number] January 11, 2021 5:12pm July 09, 2021 7:51am take 1 tablet daily following the order on blister card(s) PO Start: 01-11-2021 End: 07-09-2021 take 1 tablet by mouth once daily Levonorgestrel-Ethinyl Estrad 0.15-0.03 mg tablet Discontinued 0 PO .[place] [id number] January 11, 2021 5:12pm July 09, 2021 7:51am take 1 tablet daily following the order on blister card(s) PO Start: 01-11-2021 End: 07-09-2021 take 1 tablet by mouth once daily Levonorgestrel-Ethinyl Estrad Discontinued 0 PO .[place] [id number] January 11, 2021 4:12pm July 09, 2021 6:51am take 1 tablet daily following the order on blister card(s) PO Start: 01-11-2021 End: 07-09-2021 take 1 tablet by mouth once daily Levonorgestrel-Ethinyl Estrad Discontinued 0 PO .[place] [id number] January 11, 2021 5:12pm July 09, 2021 7:51am take 1 tablet daily following the order on blister card(s) PO Start: 01-11-2021 End: 01-11-2021 take 1 tablet by mouth once daily Levonorgestrel-Ethinyl Estrad Discontinued 0 PO .[facility] January 11, 2021 4:54pm January 11, 2021 5:13pm take 1 tablet daily following the order on blister card(s) PO Start: 01-11-2021 End: 01-11-2021 take 1 tablet by mouth once daily Levonorgestrel-Ethinyl Estrad 0.15-0.03 mg tablet Discontinued 0 PO .[facility] January 11, 2021 12:00am October 28th, 2021 5:13pm take 1 tablet daily following the order on blister card(s) PO Start: 01-11-2021 End: 01-11-2021 take 1 tablet by mouth once daily Levonorgestrel-Ethinyl Estrad Discontinued 0 PO .[place]X January 11, 2021 12:00am January 11, 2021 5:13pm take 1 tablet daily following the order on blister card(s) PO Start: 01-11-2021 End: 01-11-2021 take 1 tablet by mouth once daily Levonorgestrel-Ethinyl Estrad Discontinued 0 PO .[place] January 10, 2021 11:00pm January 11, 2021 4:13pm take 1 tablet daily following the order on blister card(s) PO methylPREDNISolone 4 mg oral tablet (2 sources) Corticosteroid Start: 08-20-2023 End: 10-06-2023 take 1 tablet by mouth once Methylprednisolone (Medrol (Jacob)) 4 mg tablets,dose pack Discontinued 0 PO per package directions 21 August 20, 2023 12:00am October 06, 2023 2:11pm PO PER PKG DIR for 6 days metroNIDAZOLE 500 mg oral tablet (2 sources) Nitroimidazole Antimicrobial Start: 07-11-2023 End: 08-20-2023 take 1 tablet by mouth twice daily Metronidazole 500 mg tablet Discontinued 500 mg PO TWICE A DAY 28 0 July 11, 2023 12:00am August 20, 2023 3:54pm pantoprazole 40 mg delayed release oral tablet (2 sources) Proton Pump Inhibitor Start: 07-11-2023 End: 10-06-2023 take 1 tablet by mouth twice daily Pantoprazole 40 mg tablet,delayed release (DR/EC) Discontinued 40 mg PO TWICE A DAY 60 July 11, 2023 12:00am October 06, 2023 2:11pm phentermine hydrochloride 30 mg oral capsule (2 sources) Sympathomimetic Amine Anorectic Start: 12-10-2023 End: 10-05-2024 take 1 capsule by mouth once daily 2 hour(s) after breakfast Phentermine 30 mg capsule Discontinued 30 mg PO daily 30 December 10, 2023 12:00am October 05, 2024 8:31am must administer 2 hours after breakfast topiramate 50 mg oral tablet (2 sources) Start: 12-10-2023 End: 10-05-2024 take 1 tablet by mouth at bedtime Topiramate 50 mg tablet Discontinued 50 mg PO AT BEDTIME 30 3 December 10, 2023 12:00am October 05, 2024 8:31am Problems Problem Classification Problem Date Documented Date Episodic/Chronic Allergic reactions (2 sources) Contact dermatitis; Translations: [Unspecified contact dermatitis, unspecified cause] 08-20-2023 Episodic Cancer; other and unspecified primary (10 sources) History of gynecological disorder; Translations: [Personal history of other benign neoplasm] 03-27-2022 Episodic Cancer; other and unspecified primary (6 sources) Personal history of other benign neoplasm; Translations: [Personal history of other genital system and obstetric disorders] 03-27-2022 Episodic Esophageal disorders (5 sources) Gastroesophageal reflux disease; Translations: [Gastro-esophageal reflux disease without esophagitis] Onset: 12-03-2024 06-19-2023 Chronic Essential hypertension (19 sources) Hypertensive disorder; Translations: [Essential (primary) hypertension] Onset: 12-03-2024 03-20-2022 Chronic Intestinal infection (2 sources) Infection caused by Helicobacter pylori; Translations: [Other specified bacterial intestinal infections] 10-06-2023 Episodic Open wounds of extremities (2 sources) Needle stick injury of finger 03-20-2023 Episodic Other female genital disorders (10 sources) Abnormal uterine bleeding; Translations: [Abnormal uterine and vaginal bleeding, unspecified] 03-27-2022 Chronic Comment on above: EMB pending, [place] Other female genital disorders (5 sources) Abnormal uterine and vaginal bleeding, unspecified; Translations: [Unspecified disorders of menstruation and other abnormal bleeding from female genital tract] 03-27-2022 Chronic Other liver diseases (10 sources) Elevated liver enzymes level; Translations: [Abnormal levels of other serum enzymes] 03-26-2022 Episodic Other nutritional; endocrine; and metabolic disorders (2 sources) Obese class I; Translations: [Class 1 obesity] 08-20-2023 Chronic Other nutritional; endocrine; and metabolic disorders (2 sources) Obesity, unspecified; Translations: [Obesity, unspecified] Onset: 06-15-2024 Chronic Other screening for suspected conditions (not mental disorders or infectious disease) (10 sources) Patient encounter status; Translations: [Encounter for screening for malignant neoplasm of colon] Onset: 04-08-2024 12-23-2022 Episodic Unclassified (2 sources) Patient encounter status; Translations: [Annual physical exam] Unclassified (4 sources) Needle stick injury of finger; Translations: [Needlestick injury of finger] 03-20-2023 Results Test Name Value Interpretation Reference Range 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 Makayla Gustafson DO Age/Sex: 48/F [place] [facility] [place]: [place] Intake Vital Signs 06/10/24 09:30 10/05/24 08:28 12/03/24 13:42 Height 5 ft 6 in 5 ft 6 in 5 ft 6 in Weight: 202 lb 7 oz BMI 32.6 BP 125/82 H Intake Visit Reasons: Annual (CHAPLAIN) Chief Complaint: Annual Bushel Girl Required: No Is patient in pain?: No Allergies No Known Allergies Allergy (Verified 12/03/24 13:44) Medications ???Medication ???Instructions ???Recorded ???Confirmed ???Type tobramycin 0.3 % eye drops 1 drp ophthalmic (eye) Q2H #5 mL 0 10/05/24 12/03/24 Rx levonorgestrel 0.15 mg-ethinyl 1 tab PO DAILY #84 tabs 12/03/24 0 12/03/24 Rx estradiol 0.03 mg tablet Is last menstrual period known: Yes Last Menstrual Period: 11/07/24 Post menopausal: No Patient : No : No Control Method: OCP [facility] Medical History (Updated 12/03/24 @ 14:[address] Makayla Jaime DO) Contact dermatitis Obesity (BMI 30.0-34.9) Wears glasses Non-smoker Elevated liver enzymes Hypertension History of hepatitis History of pneumonia Surgical History History of cervical polypectomy Family History Mother Arthritis Blood clot in vein Cervical cancer Diabetes Aunt Diabetes Father Myocardial infarction, Onset Age: 46 Grandmother Thyroid disorder Social History Smoking Status: Never smoker alcohol intake: never substance use type: does not use what type of physical activity do you participate in: none seatbelt use: always do you feel safe at home: Yes additional social history: - 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 Date Name GA/Weeks Outcome Route Bth Weight Gen Labor Lgth Anesthesia Del Locatn Provider FOB Unknown Sung live - full term HPI Encounter for routine gynecological examination Details: LOVE SHANE is a 48 year old who presents for annual exam. Last PAP: 06/2021 History of abnormal PAP: None Last mammogram: 03/08/24 History of abnormal mammogram: None Colon cancer screenin Dr. Roblero Other preventative health care screenings: GRACE- Nawaf still on OCPs continuously mom of cervical cancer. Female Reproductive History Last Menstrual Period: 11/07/24 Cycle Length: 21-35 Bleeding Duration: 5 Questions: metrorrhagia: No, sexually active: Yes, dyspareunia: No and PCB: No Menopausal Symptoms: No hot flashes, No night sweats, No weight change, No mood changes, No difficulty concentrating, No sleep problems and No change in libido ROS Const Constitutional: Reports as per HPI; Denies fatigue, increased appetite, poor appetite, night sweats, weight gain or weight loss Cardio Card: Denies chest pain Resp Resp: Denies cough or dyspnea GI GI: Reports as per HPI; Denies abdominal pain, bloating, constipation, nausea or vomiting : Reports as per HPI and other; Denies difficulty voiding, dysuria, hematuria, hot flashes, nipple discharge, pelvic pain, prolapse symptoms, urinary frequency, urinary incontinence, urinary urgency, vaginal discharge, vaginal dryness, vaginal odor or vaginal pruritus Skin Skin/Breast: Denies changing lesions, breast mass, breast pain, breast skin changes or nipple discharge Psych Psych: Denies anxiety, change in libido, depression or difficulty concentrating Exam Const General: cooperative, healthy appearing, comfortable, no acute distress, well developed and well groomed [facility] Head: normal to inspection and normocephalic Ears: hearing grossly normal bilaterally and external ears normal Nose: external nose normal Face and sinus: normal facial exam Neck Neck: normal visual inspection, full ROM and no lymphadenopathy Thyroid: thyroid normal Chest Chest palpation inspection: normal inspection of the chest Breast inspection: normal inspection of the breasts and normal inspection of the axillae Breast palpation: normal palpation of the breasts, normal palpation of the axillae and no axillary lymphadenopathy Resp Effort Inspection: normal respiratory effort GI Inspection: normal to inspection and non-distended Palpation: soft, no hepatosplenomegaly and no guarding General: blad (more content not included)... Normal [facility] Urgent Care Visit Reporton 0 10-05-2024 Urgent Care Visit Report [facility] [address], [address] [place] [address] OFFICE VISIT Date of Service: 10/05/24 MR#: [id number] Acct: [id number] Name: LOVE SHANE Rep #: [id number] : 1975 Provider: LIZ Kinney Age/Sex: 48/F Location: [facility] [place] Status: Signed Intake Vital Signs 06/10/24 09:30 10/05/24 08:28 Height 5 ft 6 in 5 ft 6 in Weight: 199 lb 8 oz BMI 32.1 BP 126/72 H Blood Pressure Location Lt brachial Position Sitting Respiration 16 Pulse 69 Pulse Source Monitor Temp 99.1 F Temp Source Oral Pulse Oximetry (%) 98 Oxygen Delivery Method room air Intake Visit Reasons: RED L EYE Chief Complaint: Redness in Left Eye Bushel Girl Required: No Accompanied by: Self Is patient in pain?: No Allergies No Known Allergies Allergy (Verified 10/05/24 08:29) Medications ???Medication ???Instructions ???Recorded ???Confirmed ???Type tobramycin 0.3 % eye drops 1 drp ophthalmic (eye) Q2H #5 mL 0 10/05/24 10/05/24 Rx Nurse's Note: Redness in left eye with crusting for 1 week. Does not itch or hurt. PFSH Medical History Contact dermatitis Obesity (BMI 30.0-34.9) Wears glasses Non-smoker Colon cancer screening Elevated liver enzymes Hypertension Preventative health care History of hepatitis History of pneumonia Surgical History History of cervical polypectomy Family History Mother Arthritis Blood clot in vein Cervical cancer Diabetes Aunt Diabetes Father Myocardial infarction, Onset Age: 46 Grandmother Thyroid disorder Social History Smoking Status: Never smoker alcohol intake: never substance use type: does not use what type of physical activity do you participate in: none seatbelt use: always do you feel safe at home: Yes additional social history: - 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 No vision changes or eye globe pain. No complaints of fever, chills, sweats, lightheadedness/dizzin ess, nausea/vomiting. No nusk-okf-fwqtxyq ophthalmic drops tried to assist. No other associated symptoms and no other alleviating/aggravatin g factors. ROS Const Constitutional: No other (As above) Exam Const General: cooperative, healthy appearing and no acute distress Orientation: alert, awake and oriented x3 HENMT Head: normal to inspection Ears: hearing grossly normal bilaterally and external ears normal Nose: external nose normal and no nasal discharge Eyes General: appearance normal, both eyes and all related structures Other: Except left conjunctival injection with exudate; negative limbus OU Neck Neck: normal visual inspection, no meningeal signs and supple Resp Effort Inspection: normal respiratory effort and able to speak in complete sentences Cardio Rate: regular rate Pulses: radial pulses present Skin General: no rashes or lesions noted Neuro General: patient alert, patient awake and patient oriented x3 Cognition: normal cognition Speech: speech normal Psych Appearance: grossly normal Mental Status: mental status grossly normal Mood: congruent mood Affect: normal affect Speech and Movement: speech and movement normal Attitude: cooperative Diagnoses Acute conjunctivitis H10.30 Assessment and Plan Assessment and Plan (1) Acute conjunctivitis: Status: Acute Plan: Tobrex drops as prescribed today to affected eye(s). Supportive measures as instructed today. Work excuse provided. Follow-up with PCP or ophthalmology in 2 to 3 days should symptoms not improve, sooner should symptoms only worsen or any other concerns develop. Patient states acknowledging understanding all the above. Coding Level of Care Code Off vis,new,level 3 Assessment and Plan Assessment and Plan Medications: New tobramycin 0.3% to affected eye while awake first 24 hours, then 3x/day on days 2-5 1 drp ophthalmic (eye) Q2H 5 mL 0RF 10/05/24 0833 Date Micky Ashley Signature: Date (if applicable) CC: Normal [facility] Center SCRN MAMM (CAD)W/KENROY BILATo n 03-08-2024 SCRN MAMM (CAD)W/KENROY BILAT [facility] Imaging Services [address] [place] [address] [id number] SCRN MAMM (CAD)W/KENROY BILAT MR#: [id number] Acct: [id number] Name: LOVE SHANE Rep #: [id number] : 1975 F 48 From: Avery Mccord MD PCP: Dr. Errol Mccracken MD Status: REG CL Study: SCRN MAMM (CAD)W/KENROY BILAT Date of Exam: 02/15 06/07 Exam# [id number] Ordering Dr: Makayla Jaime DO [id number] MAMMOGRAPHY - BILATERAL SCREENING 3-D TOMOSYNTHESIS REASON FOR EXAM: Female, 48 years old. screening mammogram PERTINENT HISTORY: No significant family history. TECHNIQUE: 2-D mammograms and 3-D Tomosynthesis of the breast (s) were performed. CAD was performed. COMPARISON: 03/07/2023 FINDINGS: The breast composition is heterogeneously dense that can obscure small breast masses. Scattered benign calcifications are seen. No dense spiculated masses or suspicious microcalcifications are identified. No architectural distortion is identified. There is no skin thickening or retraction. There has been no significant change since the prior study. BI/SCRN MAMM (CAD)W/KENROY BILAT IMPRESSION: No mammographic signs of malignancy. Routine yearly mammograms recommended. ASSESSMENT CATEGORY: BIRADS Category 1: Negative. A letter regarding these results will be sent to the patient by the facility within 30 days. FOLLOW UP RECOMMENDATION: Yearly follow up mammogram recommended. (A) Approximately 10% of breast cancers are not detected by mammography. A normal mammogram should not delay biopsy of a clinically suspicious abnormality. Electronically Signed: Avery Mccord MD at 18:04 EST , CC: Dr. Errol Mccracken MD; Dr. Makayla Jaime DO Biologist: Signed Normal [facility] Laboratory - Chemistry and C hemistry - challengeOrdered By: Catarino Manrique on 07-04-2023 HCG ( test) Ql (U) Negative [facility] Comment on above: Very dilute urine sp ecimens, as indicated by a low specificgravity, may not contain compliance representative dealer levels of hCG. If is still suspected, a first morning urinespecimen should be collected 48 hours later and tested. HIV 1 and HIV-2 antibody ass ay with HIV-1 p24 antigen detectionOrdered By: Charlee Razo on 03-20-2023 HIV 1+2 Ab+HIV1 p24 Ag IA Ql Non-Reactive Nonreactive [facility] No Panel InformationOrdered By: Charlee Razo on 03-20-2023 Hepatitis B Surface Antigen Non-Reactive Nonreactive [facility] Hepatitis C Antibody Non-Reactive Nonreactive [facility] Comment on above: Non Reactive: < 0.8 Equivocal: >/= 0.8 to < 1.0 Reactive: >/= 1.0The CDC recommends that a reactive/equivocal HCV antibody result be followed up by the HCV Nucleic Acid Amplificationtest (384005) Serum hepatitis B virus surf marion antibody IgG detectionOrdered By: Charlee Razo on 03-20-2023 HBV surface IgG Ql (S) Non-Reactive [facility] Comment on above: Non Reactive: Incons istent with immunity less than <10 mIU/mL Reactive: Consistent with immunity greater than or equal to 10 mIU/mL Absolute lymphocyte countOrd ered By: HEALTH ASSESSMENT on 12-23-2022 Lymphocytes Auto (Unsp spec) [#/Vol] 2.58 10*3/uL 0.83-4.51 [facility] Absolute reticulocyte countO rdered By: HEALTH ASSESSMENT on 12-23-2022 Reticulocytes (Bld) [#/Vol] 0.00 10*3/uL 0-5 [facility] Basophil percentageOrdered B y: HEALTH ASSESSMENT on 12-23-2022 Basophil percentage 2.4 mg/dL 2.5-4.9 [facility] Bilirubin [Mass/Vol] 0.40 mg/dL 0.20-1.00 [facility] Comment on above: For patients on eltr ombopag therapy, use of Dimension [place] TBIL is not recommended. Chloride [Moles/Vol] 107 mmol/L 98-107 [facility] Cholesterol [Mass/Vol] 132 mg/dL <200 [facility] Comment on above: <200 mg/dL Desirable 200-240 mg/dL Borderline >240 mg/dL High Risk Glucose [Mass/Vol] 103 mg/dL 74-106 [facility] Comment on above: Fasting Glucose resu lt from 100 to 125 mg/dL suggests IMPAIRED HOMEOSTASIS per A.D.A. criteria. LDH [Catalytic activity/Vol] 158 U/L 84-246 [facility] Neutrophils (Bld) [#/Vol] 4.0 10*3/uL 2.0-7.7 [facility] Potassium [Moles/Vol] 4.3 mmol/L 3.5-5.1 [facility] Protein [Mass/Vol] 7.2 g/dL 6.4-8.2 [facility] Sodium [Moles/Vol] 139 mmol/L 136-145 [facility] Triglyceride [Mass/Vol] 226 mg/dL <199 [facility] Comment on above: The drugs N-Acetylcy steine and Metamizole may falsely depress this assay.Serum Triglycerides Reference Interval Normal <150 mg/dL Borderline high 150 - 199 mg/dL High 200 - 499 mg/dL Very High > or = 500 mg/dL WBC (Bld) [#/Vol] 7.1 10*3/uL 4.4-11.0 [facility] Bilirubin Test strip Ql (U)O rdered By: HEALTH ASSESSMENT on 12-23-2022 Bilirubin Ql (U) Negative Negative [facility] Blood erythrocytes count (nu mber/volume)Ordered By: HEALTH ASSESSMENT on 12-23-2022 RBC (Bld) [#/Vol] 4.29 10*6/uL 4.2-5.4 [facility] Blood hemoglobin measurement (mass/volume)Ordered By: HEALTH ASSESSMENT on 12-23-2022 Hemoglobin (Bld) [Mass/Vol] 13.0 g/dL 12.0-15.0 [facility] Blood platelet mean volumeOr dered By: HEALTH ASSESSMENT on 12-23-2022 Platelet mean volume (Bld) [Entitic vol] 10.7 fL 6.2-12.0 [facility] Determination of erythrocyte mean corpuscular volume (MCV)Ordered By: HEALTH ASSESSMENT on 12-23-2022 MCV (RBC) [Entitic vol] 94.4 fL 81-99 [facility] Direct bilirubinOrdered By: HEALTH ASSESSMENT on 12-23-2022 Bilirubin.direct [Mass/Vol] 0.10 mg/dL 0.00-0.30 [facility] Hematocrit Auto (Bld) [Volum e fraction]Ordered By: HEALTH ASSESSMENT on 12-23-2022 Hematocrit (Bld) [Volume fraction] 40.5 % 37-47 [facility] Ketones Test strip Ql (U)Ord ered By: HEALTH ASSESSMENT on 12-23-2022 Ketones Ql (U) Negative Negative [facility] Laboratory - Chemistry and C hemistry - challengeOrdered By: HEALTH ASSESSMENT on 12-23-2022 ALP [Catalytic activity/Vol] 45 U/L 45-117 [facility] ALT [Catalytic activity/Vol] 52 U/L 13-56 [facility] Cholesterol.total/Terri sterol in HDL [Mass ratio] 2.80 {ratio} [facility] CO2 [Moles/Vol] 27.0 mmol/L 21.0-32.0 [facility] Globulin (S) [Mass/Vol] 3.7 g/dL 2.2-4.2 [facility] Urea nitrogen/Creatinine [Mass ratio] 12.5 mg/mg 10-20 [facility] Laboratory - Hematology and Cell countsOrdered By: HEALTH ASSESSMENT on 12-23-2022 Erythrocyte distribution width (RBC) [Entitic vol] 44.4 fL 35.1-43.9 [facility] Erythrocyte distribution width (RBC) [Ratio] 12.9 % 11.6-14.6 [facility] MCH (RBC) [Entitic mass] 30.3 pg 27.0-32.0 [facility] Nucleated RBC/100 WBC (Bld) [Ratio] 0 % 0-5 [facility] MCHC Auto (RBC) [Mass/Vol]Or dered By: HEALTH ASSESSMENT on 12-23-2022 MCHC (RBC) [Mass/Vol] 32.1 g/dL 32-36 [facility] Nitrite Test strip Ql (U)Ord ered By: HEALTH ASSESSMENT on 12-23-2022 Nitrite Ql (U) Negative Negative [facility] No Panel InformationOrdered By: HEALTH ASSESSMENT on 12-23-2022 Estimated GFR (MDRD) Amer 148 mL/min >60 [facility] Comment on above: GFR Calc Estimated GFR (MDRD) Non-Af Amer 123 mL/min >60 [facility] Comment on above: Non- GFR Calc Platelets bldOrdered By: HEJez LTH ASSESSMENT on 12-23-2022 Platelets (Bld) [#/Vol] 314 10*3/uL 150-450 [facility] Protein Test strip Ql (U)Ord ered By: HEALTH ASSESSMENT on 12-23-2022 Protein Ql (U) Negative Negative [facility] Segmented neutrophils/100 WB C Auto (Bld)Ordered By: HEALTH ASSESSMENT on 12-23-2022 Segmented neutrophils/100 WBC (Bld) 55.7 % 47-70 [facility] Serum or plasma albumin parag urement (mass/volume)Ordered By: HEALTH ASSESSMENT on 12-23-2022 Albumin [Mass/Vol] 3.5 g/dL 3.2-5.0 [facility] Serum or plasma albumin/glob ulin mass ratioOrdered By: HEALTH ASSESSMENT on 12-23-2022 Albumin/Globulin [Mass ratio] 0.9 {ratio} 0.9-2.4 [facility] Serum or plasma calcium parag urement (mass/volume)Ordered By: HEALTH ASSESSMENT on 12-23-2022 Calcium [Mass/Vol] 8.4 mg/dL 8.5-10.1 [facility] Serum or plasma cholesterol in HDL measurement (mass/volume)Ordered By: HEALTH ASSESSMENT on 12-23-2022 Cholesterol in HDL [Mass/Vol] 47 mg/dL >40 [facility] Comment on above: The drugs N-Acetylcy steine and Metamizole may falsely depress this assay. Reference Range HDL <40 mg/dL Low HDL Cholesterol HDL >or= 60 mg/dL High HDL Cholesterol Serum or plasma cholesterol in VLDL measurement (mass/volume)Ordered By: HEALTH ASSESSMENT on 12-23-2022 Cholesterol in VLDL [Mass/Vol] 45 mg/dL 5-40 [facility] Serum or plasma creatinine m easurement (mass/volume)Ordered By: HEALTH ASSESSMENT on 12-23-2022 Creatinine [Mass/Vol] 0.56 mg/dL 0.55-1.02 [facility] Comment on above: The validity of the calculated GFR & GFRAA in patients over 70 years has not been determined. Clinical correlation is essential. Serum or plasma low density lipoprotein (LDL) cholesterol measurement (mass/volume)Ordered By: HEALTH ASSESSMENT on 12-23-2022 Cholesterol in LDL [Mass/Vol] 40 mg/dL 0-130 [facility] Serum or plasma urea nitroge n measurement (mass/volume)Ordered By: HEALTH ASSESSMENT on 12-23-2022 Urea nitrogen [Mass/Vol] 7 mg/dL 7-18 [facility] Serum or plasma uric acid me asurement (mass/volume)Ordered By: HEALTH ASSESSMENT on 12-23-2022 Urate [Mass/Vol] 4.1 mg/dL 2.6-6.0 [facility] Comment on above: The drugs N-Acetylcy steine and Metamizole may falsely depress this assay. Thin prep Papanicolaou smear with manual screeningOrdered By: HEALTH ASSESSMENT on 12-23-2022 Thin prep Papanicolaou smear with manual screening 31 U/L 15-37 [facility] Thin prep Papanicolaou smear with manual screening 5 5-15 [facility] Urine blood detectionOrdered By: HEALTH ASSESSMENT on 12-23-2022 RBC Ql (U) 25 /ul Negative [facility] Urine clarityOrdered By: HEA LTH ASSESSMENT on 12-23-2022 Clarity (U) Clear Clear [facility] Urine color determinationOrd ered By: HEALTH ASSESSMENT on 12-23-2022 Color (U) Yellow Yellow [facility] Urine glucose detectionOrder ed By: HEALTH ASSESSMENT on 12-23-2022 Glucose Ql (U) Normal mg/dl Normal [facility] Urine leukocyte esterase det ection by dipstickOrdered By: HEALTH ASSESSMENT on 12-23-2022 Leukocyte esterase Test strip Ql (U) 25 /ul Negative [facility] Urine pHOrdered By: HEALTH A SSESSMENT on 12-23-2022 pH (U) 6.0 [pH] 5.0 - 8.0 [facility] Urine specific gravity measu rementOrdered By: HEALTH ASSESSMENT on 12-23-2022 Specific gravity (U) [Rel density] 1.010 1.002-1.030 [facility] Urobilinogen Auto test strip Ql (U)Ordered By: HEALTH ASSESSMENT on 12-23-2022 Urobilinogen Ql (U) Normal mg/dl Normal [facility] No Panel InformationOrdered By: Dr. Mccracken on 03-28-2022 Hepatitis B Surface Antigen Non-Reactive Nonreactive [facility] Hepatitis C Antibody Non-Reactive Nonreactive [facility] Comment on above: Non Reactive: < 0.8 Equivocal: >/= 0.8 to < 1.0 Reactive: >/= 1.0The CDC recommends that a reactive/equivocal HCV antibody result be followed up by the HCV Nucleic Acid Amplificationtest (034776) Laboratory - Chemistry and C hemistry - challengeon 03-27-2022 HCG ( test) Ql (U) Negative [facility] Absolute lymphocyte countOrd ered By: Dr. Mccracken on 03-21-2022 Lymphocytes Auto (Unsp spec) [#/Vol] 2.83 10*3/uL 0.83-4.51 [facility] Basophil percentageOrdered B y: Dr. Mccracken on 03-21-2022 Basophils/100 WBC (Bld) 0.6 % 0-1 [facility] Bilirubin [Mass/Vol] 0.50 mg/dL 0.20-1.00 [facility] Comment on above: For patients on eltr ombopag therapy, use of Dimension [place] TBIL is not recommended. Chloride [Moles/Vol] 106 mmol/L 98-107 [facility] Cholesterol [Mass/Vol] 178 mg/dL <200 [facility] Comment on above: <200 mg/dL Desirable 200-240 mg/dL Borderline >240 mg/dL High Risk Eosinophils/100 WBC (Bld) 1.2 % 0-5 [facility] Glucose [Mass/Vol] 95 mg/dL 74-106 [facility] Neutrophils (Bld) [#/Vol] 3.1 10*3/uL 2.0-7.7 [facility] Neutrophils/100 WBC (Bld) 47.0 % 47-70 [facility] Potassium [Moles/Vol] 4.1 mmol/L 3.5-5.1 [facility] Protein [Mass/Vol] 7.7 g/dL 6.4-8.2 [facility] Sodium [Moles/Vol] 139 mmol/L 136-145 [facility] Triglyceride [Mass/Vol] 193 mg/dL <199 [facility] Comment on above: The drugs N-Acetylcy steine and Metamizole may falsely depress this assay.Serum Triglycerides Reference Interval Normal <150 mg/dL Borderline high 150 - 199 mg/dL High 200 - 499 mg/dL Very High > or = 500 mg/dL WBC (Bld) [#/Vol] 6.5 10*3/uL 4.4-11.0 [facility] Blood erythrocytes count (nu mber/volume)Ordered By: Dr. Mccracken on 03-21-2022 RBC (Bld) [#/Vol] 4.49 10*6/uL 4.2-5.4 [facility] Blood hemoglobin measurement (mass/volume)Ordered By: Dr. Mccracken on 03-21-2022 Hemoglobin (Bld) [Mass/Vol] 13.8 g/dL 12.0-15.0 [facility] Blood lymphocytes/100 leukoc ytesOrdered By: Dr. Mccracken on 03-21-2022 Lymphocytes/100 WBC (Bld) 43.6 % 19-41 [facility] Blood monocytes/100 leukocyt esOrdered By: Dr. Mccracken on 03-21-2022 Monocytes/100 WBC (Bld) 7.4 % 0-10 [facility] Blood platelet mean volumeOr dered By: Dr. Mccracken on 03-21-2022 Platelet mean volume (Bld) [Entitic vol] 9.9 fL 6.2-12.0 [facility] Determination of erythrocyte mean corpuscular volume (MCV)Ordered By: Dr. Mccracken on 03-21-2022 MCV (RBC) [Entitic vol] 92.0 fL 81-99 [facility] Hematocrit Auto (Bld) [Volum e fraction]Ordered By: Dr. Mccracken on 03-21-2022 Hematocrit (Bld) [Volume fraction] 41.3 % 37-47 [facility] Laboratory - Chemistry and C hemistry - challengeOrdered By: Dr. Mccracken on 03-21-2022 ALP [Catalytic activity/Vol] 57 U/L 45-117 [facility] ALT [Catalytic activity/Vol] 72 U/L 13-56 [facility] CO2 [Moles/Vol] 28.0 mmol/L 21.0-32.0 [facility] Globulin (S) [Mass/Vol] 4.0 g/dL 2.2-4.2 [facility] Urea nitrogen/Creatinine [Mass ratio] 16.8 mg/mg 10-20 [facility] Laboratory - Hematology and Cell countsOrdered By: Dr. Mccracken on 03-21-2022 Erythrocyte distribution width (RBC) [Entitic vol] 43.3 fL 35.1-43.9 [facility] Erythrocyte distribution width (RBC) [Ratio] 12.7 % 11.6-14.6 [facility] Immature granulocytes/100 WBC (Bld) 0.200 % 0.0-0.9 [facility] Comment on above: IG% - Immature Granu locytes (promyelocytes, myelocytes and metamyelocytes) > 1% indicates that a LEFT SHIFT is Present. MCH (RBC) [Entitic mass] 30.7 pg 27.0-32.0 [facility] Nucleated RBC/100 WBC (Bld) [Ratio] 0 % 0-5 [facility] MCHC Auto (RBC) [Mass/Vol]Or dered By: Dr. Mccracken on 03-21-2022 MCHC (RBC) [Mass/Vol] 33.4 g/dL 32-36 [facility] No Panel InformationOrdered By: Dr. Mccracken on 03-21-2022 Estimated GFR (MDRD) Amer 139 mL/min >60 [facility] Comment on above: GFR Calc Estimated GFR (MDRD) Non-Af Amer 114 mL/min >60 [facility] Comment on above: Non- GFR Calc Platelets bldOrdered By: Dr. Mccracken on 03-21-2022 Platelets (Bld) [#/Vol] 320 10*3/uL 150-450 [facility] Serum or plasma albumin parag urement (mass/volume)Ordered By: Dr. Mccracken on 03-21-2022 Albumin [Mass/Vol] 3.7 g/dL 3.2-5.0 [facility] Serum or plasma albumin/glob ulin mass ratioOrdered By: Dr. Mccracken on 03-21-2022 Albumin/Globulin [Mass ratio] 0.9 {ratio} 0.9-2.4 [facility] Serum or plasma calcium parag urement (mass/volume)Ordered By: Dr. Mccracken on 03-21-2022 Calcium [Mass/Vol] 9.1 mg/dL 8.5-10.1 [facility] Serum or plasma cholesterol in HDL measurement (mass/volume)Ordered By: Dr. Mccracken on 03-21-2022 Cholesterol in HDL [Mass/Vol] 58 mg/dL >40 [facility] Comment on above: The drugs N-Acetylcy steine and Metamizole may falsely depress this assay. Reference Range HDL <40 mg/dL Low HDL Cholesterol HDL >or= 60 mg/dL High HDL Cholesterol Serum or plasma cholesterol in VLDL measurement (mass/volume)Ordered By: Dr. Mccracken on 03-21-2022 Cholesterol in VLDL [Mass/Vol] 39 mg/dL 5-40 [facility] Serum or plasma creatinine m easurement (mass/volume)Ordered By: Dr. Mccracken on 03-21-2022 Creatinine [Mass/Vol] 0.60 mg/dL 0.55-1.02 [facility] Comment on above: The validity of the calculated GFR & GFRAA in patients over 70 years has not been determined. Clinical correlation is essential. Serum or plasma low density lipoprotein (LDL) cholesterol measurement (mass/volume)Ordered By: Dr. Mccracken on 03-21-2022 Cholesterol in LDL [Mass/Vol] 81 mg/dL 0-130 [facility] Serum or plasma urea nitroge n measurement (mass/volume)Ordered By: Dr. Mccracken on 03-21-2022 Urea nitrogen [Mass/Vol] 10 mg/dL 7-18 [facility] Thin prep Papanicolaou smear with manual screeningOrdered By: Dr. Mccracken on 03-21-2022 Thin prep Papanicolaou smear with manual screening 43 U/L 15-37 [facility] Thin prep Papanicolaou smear with manual screening 5 5-15 [facility] Cervical or vagninal specime n microscopic examination by cytology stain (reported ason 07-05-2021 Cytology report Cyto stain Doc (Cvx/Vag) Comment [facility] Work Phone: Comment on above: The Pap smear is a s creening test designed to aid in thedetection of premalignant and malignant conditions of theuterine cervix. It is not a diagnostic procedure andshould not be used as the sole means of detecting cervicalcancer. Both false-positive and false-negative reports dooccur. Detection in cervical specim en of any of human papilloma virus (HPV) 16, 18, 31, 33,on 07-05-2021 HPV 16+18+31+33+35+39+45+51 +52+56+58+59+66+68 DNA Probe+sig amp Ql (Cvx) Negative Negative [facility] Work Phone: Comment on above: This nucleic acid am plification test detects fourteen high-risk HPV types (16,18,31,33,35,39,45,51,52,56,58,59,66,68)without differentiation.Performed at: - [facility] [id number] Director: Deb Lambert MD, Phone: [phone] at: = - [facility] [id number] Director: Deb Lambert MD, Phone: [phone] Laboratory - Cytologyon 06-16 Technology Education Instructor Cyto stain Nom (Cvx/Vag) [ID] Comment [facility] Work Phone: Comment on above: Eugenia Drummond, Cytot echnologist (ASCP) Laboratory - Miscellaneous t estson 07-05-2021 Service comment (Unsp spec) [Interp] Comment [facility] Work Phone: Comment on above: This liquid based Th inPrep(R) pap test was screened withthe use of an image guided system. Service comment (Unsp spec) [Interp] . [facility] Work Phone: No Panel Informationon 07-05 Pathology report final diagnosis Narrative Comment [facility] Work Phone: Comment on above: NEGATIVE FOR INTRAEP ITHELIAL LESION OR MALIGNANCY.FUNGAL ORGANISMS MORPHOLOGICALLY CONSISTENT WITH ERICK SPECIES AREPRESENT. CNOVon 02-12-2021 CNOV Office Visit (OBGYWM ) LOVE SHANE V ([id number]) 1975 F Date Time Provider Department 02/12/21 3:20 PM BUDDY COX OBLAURY During your visit today, we recorded the following information about you: Blood pressure Weight Height Last Period 120/80 88.9 kg 1.664 m 01/19/21 Buddy Cox MD 02/12/2021 5:02 PM Signed Love is a 45 year old who presents for an annual gynecologic exam without complaints. Menses: regular on ocp with 3 days of flow Contraception: combined hormonal contraceptives HPV vaccine: N/A Last Pap: 12/03/2019 normal HPV: 12/03/2019 negative - At [facility] History of abnormal pap: No Last mammogram: 2018 - had diagnostic mammogram and breast US Sexually active: Yes Patient concerns for STD exposure: No. Pain with intercourse: No Postcoital bleeding: No Working on scheduling colonoscopy through PCP at [facility] Had flu vaccine Had covid vaccine OB History T0 L1 SAB0 IAB0 Ectopic0 Multiple0 Live Births0 Comment: 1 vaginal delivery [employer] History LMP: 01/19/2021, Having periods Age at Menarche: Age at First : Age at Menopause: [employer] History Comments: Sexual Activity: Yes; Male Contraception: Pill PAST MEDICAL HISTORY Diagnosis Date - Endometrial polyp PAST SURGICAL HISTORY Procedure Laterality Date - EXCISION UTERINE MASS VAGINALLY Patient reprots excsion of uterine polyp FAMILY HISTORY Problem Relation Age of Onset - Blood Clots Mother - Cervical Cancer Mother - other (cad) Father - other (HI at 47) Father - other (liver diseas) Maternal Grandmother - other (HTN) Paternal Grandmother - other (lung cancer) Paternal Grandfather SOCIAL HISTORY Social History Tobacco Use - Smoking status: Never Smoker - Smokeless tobacco: Never Used Vaping Use - Vaping Use: Never used Substance Use Topics - Alcohol use: Yes Comment: rare - Drug use: Never REVIEW OF SYSTEMS Abdomen: No abdominal pain, nausea, vomiting, diarrhea, or constipation. No bloating, early satiety, indigestion, or increased flatulence. Bladder: No dysuria, gross hematuria, urinary frequency, urinary urgency, or incontinence. Breast: No breast lumps, nipple d/c, overlying skin changes, redness or skin retraction. Allergies and current medication updated:Yes EXAM: BP 120/80 Ht 5' 5.5" (1.66m) Wt 196 lb (88.9kg) LMP 01/19/2021 BMI 32.11 kg/(m2). GENERAL: pleasant, female in no apparent distress HEENT: Normocephalic, atraumatic, mucus membranes moist and no lesions NECK: full range of motion DERMATOLOGY: Normal, without lesions, non-icteric and non-hirsute BREAST: soft, non-tender, symmetric, no dominant mass, normal nipple-areolar complex, no lymphadenopathy and no nipple discharge CHEST: Normal inspiratory effort ABDOMEN: soft, non-tender and no masses PELVIC: external genitalia normal, normal Bartholin's glands, urethra, Pickwick's glands, no vulvar lesions, no cervical lesions, good vaginal support, physiologic discharge present, normal appearing perineal body and perianal region BIMANUAL: uterus normal size, shape and consistency, no adnexal masses and non-tender RECTOVAGINAL: deferred. NEURO: exam grossly non-focal EXTREMITIES: normal ASSESSMENT/PLAN: 1) Health maintenance: Pap/HPV up to date. Mammogram - scheduled. Nutrition, exercise and routine health maintenance exams reviewed. Discussed colon cancer screening and she is scheduling through PCP. 2) Contraception: combined hormonal contraceptives. Contraceptive options reviewed and information provided. 3) STD screening: Declined STD check. 4) Follow up one year or sooner as needed Buddy Cox DO Referring Provider: SELF [[id number]] Allergies As of Date: 02/12/2021 (No Known Allergies) Date Reviewed: 02/12/2021 Reviewed by: Roseline Damon MA - Fully Assessed Reason for Visit: Well Woman [[id number]] Primary Visit Diagnosis:Encounter for screening mammogram for malignant neoplasm of breast [Z12.31] Other Visit Diagnoses:Encounter for gynecological examination (general) (routine) without abnormal findings [Z01.419] Screening for cervical cancer [Z12.4] Encounter for screening for human papillomavirus (HPV) [Z11.51] Encounter for surveillance of contraceptive pills [Z30.41] Order(s):[facility] SCREENING [[id number]] Order #: [id number] FUTURE Levonorgestrel-Ethinyl Estrad (AVIANE) 0.1mg - 20mcg per tabletTake 1 tablet by mouth once daily.Disp: 84 tabletRfl: 3 Prescriptions as of 02/12/2021 - Levonorgestrel-Ethinyl Estrad (AVIANE) 0.1mg - 20mcg per tablet Take 1 tablet by mouth once daily. - MEDICATION, NON-DATABASE Ethinylestradiol+Gesto dene Problem List As Of Date: 02/12/2021 (None) Prescriptions ordered this encounter Disp Refills Start End LEVONORGESTREL-ETHINYL ESTRADIOL 0.1* 84 t* 3 02/12/2021 05/07/2021 Route: ORAL Sig: Take 1 tablet b (more content not included)... Normal [facility] IG PAP HPV MRNA RFX TO GENOT YPES 16,18/45on 12-08-2019 DIAGNOSIS: Comment [facility] Comment on above: Result Comment: NEGA TIVE FOR INTRAEPITHELIAL LESION OR MALIGNANCY. PERFORMED AT [facility] HPV Negative [facility] Comment on above: Result Comment: Refe rence range: Negative (NOTE) This nucleic acid amplification test detects fourteen high-risk HPV types (16,18,31,33,35,39,45,51,52,56,58,59,66,68) without differentiation. No. of containers..01 ThinPrep Vial PERFORMED AT [facility] NOTE: Comment [facility] Comment on above: Result Comment: (NOT E) The Pap smear is a screening test designed to aid in the detection of premalignant and malignant conditions of the uterine cervix. It is not a diagnostic procedure and should not be used as the sole means of detecting cervical cancer. Both false-positive and false-negative reports do occur. PERFORMED AT [facility] PERFORMED BY: Comment [facility] Comment on above: Result Comment: Buddy Gonzalez, Gear Hobber Operator (ASCP) PERFORMED AT [facility] SPECIMEN ADEQUACY: Comment [facility] Comment on above: Result Comment: (NOT E) Satisfactory for evaluation. Endocervical and/or squamous metaplastic cells (endocervical component) are present. PERFORMED AT [facility] TEST METHODOLOGY: Comment [facility] Comment on above: Result Comment: (NOT E) This liquid based ThinPrep(R) pap test was screened with the use of an image guided system. PERFORMED AT [facility] . . [facility] Comment on above: Result Comment: PERF ORMED AT [facility] POCT URINALYSIS DIPSTICK NON AUTOMATEDon 12-03-2019 Amorphous sediment LM Ql (Urine sed) [facility] Appearance (U) [facility] Bacteria LM Ql (Urine sed) [facility] Bilirubin Ql (U) Negative [facility] Casts LM.LPF (Urine sed) [#/Area] [facility] Color (U) [facility] Crystals LM Nom (Urine sed) [facility] Epithelial cells.squamous LM.HPF (Urine sed) [#/Area] [facility] Flow cytometry specialist review Jona (Unsp spec) [Interp] [facility] Glucose Auto test strip (U) [Mass/Vol] Negative mg/dL [facility] Interpretation and review of laboratory results Abnormal [facility] Ketones [Mass/Vol] Negative mg/dL [facility] Leukocyte esterase Qn (U) [facility] Leukocyte esterase Test strip Ql (U) Negative [facility] Nitrite Ql (U) Negative [facility] pH (U) 5.0 [pH] [facility] Protein Ql (U) Negative mg/dL [facility] RBC LM.HPF (Urine sed) [#/Area] [facility] RBC Ql (U) small [facility] Specific gravity (U) [Rel density] >=1.030 [facility] Transitional cells LM Ql (Urine sed) [facility] Urobilinogen Qn (U) 0.2 [facility] WBC LM.HPF (Urine sed) [#/Area] [facility] MEASLES,MUMP,RUBELLAon 07-27 RUBELLA AB, IGG 3.32 index Normal Immune >0.99 [facility] Comment on above: Result Comment: (NOT E) Non-immune <0.90 Equivocal 0.90 - 0.99 Immune >0.99 PERFORMED AT [facility] Performed By: #### L MMR #### Testing performed at [facility] [address] [place] [address] Testing performed at [facility] [address] [place] [address] [address] [place] [address] HEP B SURFACE ABon 0 HEP B SURFACE AB Negative Abnormal POSITIVE [facility] Comment on above: Result Comment: Clinical Interpretation of Immune Status Negative: patient is considered to be not immune to infection with HBV Intermediate: unable to determine if anti-HBs is present at levels consistent with immunity Positive: anti-HBs detected, patient is considered to be immune to infection with HBV Performed By: #### L MMR #### Testing performed at [address] [place] [address] Testing performed at [address] [address] HEP C ABon 07-27-2019 HEP C AB Negative Normal NEGATIVE [facility] Comment on above: Performed By: #### L MMR #### Testing performed at [address] [place] [address] Testing performed [address] [place] [place] [address] FAX REQUESTon 07-26-2019 FAX TO [facility] Comment on above: Performed By: #### L MMR #### Testing performed at [address] [place] [address] Testing performed at [address] [address] MEASLES,MUMP,RUBELLAon 07-25 MUMPS ABS, IGG PENDING [facility] Comment on above: Performed By: #### L MMR #### Testing performed at [address] [place] [address] Testing performed at [address] [address] RUBEOLA AB, IGG PENDING [facility] Comment on above: Performed By: #### L MMR #### Testing performed at [address] [address] Testing performed at [address] [address] Vital Signs Date Time Vital Sign Value Performing Clinician Facility 10-05-2024 08:28-0400 Body height 167.[address] Errol Mccracken MD Work Phone: [facility] 10-05-2024 08:28-0400 Body mass index (BMI) [Ratio] 32.1 kg/m2 Dr. Errol Mccracken MD Work Phone: [facility] 10-05-2024 08:28-0400 Body temperature 99.1 [degF] Dr. Errol Mccracken MD Work Phone: [facility] 10-05-2024 08:28-0400 Body weight 90.[address] Errol Mccracken MD Work Phone: [facility] 10-05-2024 08:28-0400 Diastolic blood pressure 72 mm[Hg] Dr. Errol Mccracken MD Work Phone: [facility] 10-05-2024 08:28-0400 Heart rate 69 /min Dr. Errol Mccracken MD Work Phone: [facility] 10-05-2024 08:28-0400 Respiratory rate 16 /min Dr. Errol Mccracken MD Work Phone: [facility] 10-05-2024 08:28-0400 SaO2% (BldA) [Mass fraction] 98 % Dr. Errol Mccracken MD Work Phone: [facility] 10-05-2024 08:28-0400 Systolic blood pressure 126 mm[Hg] Dr. Errol Mccracken MD Work Phone: [facility] 06-10-2024 09:30-0400 Body height 167.[address] Errol Mccracken MD Work Phone: [facility] 06-10-2024 09:30-0400 Body weight 87.[address] Errol Mccracken MD Work Phone: [facility] 05-11-2024 16:45-0500 Body weight 87.[address] Errol Mccracken MD Work Phone: [facility] 03-17-2024 00:20-0500 Body weight 91.[address] Errol Mccracken MD Work Phone: [facility] 03-04-2024 09:30-0500 Body weight 85.[address] Errol Mccracken MD Work Phone: [facility] 01-22-2024 08:00-0500 Body weight 87.[address] Errol Mccracken MD Work Phone: [facility] 07-04-2023 07:35-0400 Body temperature 97.7 [degF] Dr. Errol Mccracken Work Phone: [facility] 07-04-2023 07:35-0400 Diastolic blood pressure 75 mm[Hg] Dr. Errol Mccracken Work Phone: [facility] 07-04-2023 07:35-0400 Heart rate 56 /min Dr. Errol Mccracken Work Phone: [facility] 07-04-2023 07:35-0400 Respiratory rate 16 /min Dr. Errol Mccracken Work Phone: [facility] 07-04-2023 07:35-0400 SaO2% (BldA) [Mass fraction] 100 % Dr. Errol Mccracken Work Phone: [facility] 07-04-2023 07:35-0400 Systolic blood pressure 116 mm[Hg] Dr. Errol Mccracken Work Phone: [facility] 07-04-2023 06:08-0400 Body height 167.[address] Errol Mccracken Work Phone: [facility] 07-04-2023 06:08-0400 Body mass index (BMI) [Ratio] 31.3 kg/m2 Dr. Errol Mccracken Work Phone: [facility] 07-04-2023 06:08-0400 Body weight [address] Errol Mccracken Work Phone: [facility] 03-20-2023 13:19-0500 Body height 167.[address] Errol Mccracken Work Phone: [facility] 03-20-2023 13:19-0500 Body mass index (BMI) [Ratio] 31.8 kg/m2 Dr. Errol Mccracken Work Phone: [facility] 03-20-2023 13:19-0500 Body temperature 97.3 [degF] Dr. Errol Mccracken Work Phone: [facility] 03-20-2023 13:19-0500 Body weight 89.[address] Errol Mccracken Work Phone: [facility] 03-20-2023 13:19-0500 Diastolic blood pressure 74 mm[Hg] Dr. Errol Mccracken Work Phone: [facility] 03-20-2023 13:19-0500 Heart rate 67 /min Dr. Errol Mccracken Work Phone: [facility] 03-20-2023 13:19-0500 Respiratory rate 18 /min Dr. Errol Mccracken Work Phone: [facility] 03-20-2023 13:19-0500 SaO2% (BldA) [Mass fraction] 100 % Dr. Errol Mccracken Work Phone: [facility] 03-20-2023 13:19-0500 Systolic blood pressure 128 mm[Hg] Dr. Errol Mccracken Work Phone: [facility] 02-03-2023 13:53-0500 Body height 167.[address] Errol Mccracken Work Phone: [facility] 02-03-2023 13:53-0500 Body mass index (BMI) [Ratio] 32 kg/m2 Dr. Errol Mccracken Work Phone: [facility] 02-03-2023 13:53-0500 Body temperature 98.4 [degF] Dr. Errol Mccracken Work Phone: [facility] 02-03-2023 13:53-0500 Body weight 89.[address] Errol Mccracken Work Phone: [facility] 02-03-2023 13:53-0500 Diastolic blood pressure 62 mm[Hg] Dr. Errol Mccracken Work Phone: [facility] 02-03-2023 13:53-0500 Heart rate 81 /min Dr. Errol Mccracken Work Phone: [facility] 02-03-2023 13:53-0500 Respiratory rate 16 /min Dr. Errol Mccracken Work Phone: [facility] 02-03-2023 13:53-0500 SaO2% (BldA) [Mass fraction] 97 % Dr. Errol Mccracken Work Phone: [facility] 02-03-2023 13:53-0500 Systolic blood pressure 118 mm[Hg] Dr. Errol Mccracken Work Phone: [facility] 12-23-2022 08:52-0400 Body mass index (BMI) [Ratio] 31.8 kg/m2 Dr. Errol Mccracken Work Phone: [facility] 12-23-2022 08:52-0400 Body temperature 95.4 [degF] Dr. Errol Mccracken Work Phone: [facility] 12-23-2022 08:52-0400 Body weight 89.[address] Errol Mccracken Work Phone: [facility] 12-23-2022 08:52-0400 Diastolic blood pressure 86 mm[Hg] Dr. Errol Mccracken Work Phone: [facility] 12-23-2022 08:52-0400 Heart rate 96 /min Dr. Errol Mccracken Work Phone: [facility] 12-23-2022 08:52-0400 Respiratory rate 18 /min Dr. Errol Mccracken Work Phone: [facility] 12-23-2022 08:52-0400 SaO2% (BldA) [Mass fraction] 98 % Dr. Errol Mccracken Work Phone: [facility] 12-23-2022 08:52-0400 Systolic blood pressure 146 mm[Hg] Dr. Errol Mccracken Work Phone: [facility] 07-24-2022 08:25-0400 Body height 167.[address] Errol Mccracken Work Phone: [facility] 07-24-2022 08:24-0400 Body mass index (BMI) [Ratio] 31.6 kg/m2 Dr. Errol Mccracken Work Phone: [facility] 07-24-2022 08:24-0400 Body weight 89.[address] Errol Mccracken Work Phone: [facility] 07-24-2022 08:24-0400 Diastolic blood pressure 82 mm[Hg] Dr. Errol Mccracken Work Phone: [facility] 07-24-2022 08:24-0400 Systolic blood pressure 144 mm[Hg] Dr. Errol Mccracken Work Phone: [facility] 05-01-2022 08:30-0500 Body mass index (BMI) [Ratio] 31.8 kg/m2 Dr. Errol Mccracken Work Phone: [facility] 05-01-2022 08:30-0500 Body weight 89.[address] Errol Mccracken Work Phone: [facility] 05-01-2022 08:30-0500 Diastolic blood pressure 79 mm[Hg] Dr. Errol Mccracken Work Phone: [facility] 05-01-2022 08:30-0500 Systolic blood pressure 130 mm[Hg] Dr. Errol Mccracken Work Phone: [facility] 03-27-2022 10:15-0500 Body height 167.[address] Errol Mccracken Work Phone: [facility] 03-27-2022 10:09-0500 Body mass index (BMI) [Ratio] 31.5 kg/m2 Dr. Errol Mccracken Work Phone: [facility] 03-27-2022 10:09-0500 Body weight 88.[address] Errol Mccracken Work Phone: [facility] 03-27-2022 10:09-0500 Diastolic blood pressure 86 mm[Hg] Dr. Errol Mccracken Work Phone: [facility] 03-27-2022 10:09-0500 Systolic blood pressure 130 mm[Hg] Dr. Errol Mccracken Work Phone: [facility] 03-20-2022 14:39-0500 Body mass index (BMI) [Ratio] 31.3 kg/m2 Dr. Errol Mccracken Work Phone: [facility] 03-20-2022 14:39-0500 Body temperature 97.7 [degF] Dr. Errol Mccracken Work Phone: [facility] 03-20-2022 14:39-0500 Body weight 87.[address] Errol Mccracken Work Phone: [facility] 03-20-2022 14:39-0500 Diastolic blood pressure 90 mm[Hg] Dr. Errol Mccracken Work Phone: [facility] 03-20-2022 14:39-0500 Heart rate 61 /min Dr. Errol Mccracken Work Phone: [facility] 03-20-2022 14:39-0500 Respiratory rate 16 /min Dr. Errol Mccracken Work Phone: [facility] 03-20-2022 14:39-0500 SaO2% (BldA) [Mass fraction] 98 % Dr. Errol Mccracken Work Phone: [facility] 03-20-2022 14:39-0500 Systolic blood pressure 128 mm[Hg] Dr. Errol Mccracken Work Phone: [facility] 07-05-2021 08:34-0400 Body height 167.[address] Errol Mccracken Work Phone: [facility] Work Phone: 07-05-2021 08:34-0400 Body mass index (BMI) [Ratio] 31.6 kg/m2 Dr. Errol Mccracken Work Phone: [facility] Work Phone: 07-05-2021 08:34-0400 Body weight 88.[address] Errol Mccracken Work Phone: [facility] Work Phone: 07-05-2021 08:34-0400 Diastolic blood pressure 88 mm[Hg] Dr. Errol Mccracken Work Phone: [facility] Work Phone: 07-05-2021 08:34-0400 Systolic blood pressure 132 mm[Hg] Dr. Errol Mccracken Work Phone: [facility] Work Phone: 12-03-2019 13:27-0400 Body Temperature 98.01 [degF] [facility] 12-03-2019 13:27-0400 Body weight 86.18 kg [facility] 12-03-2019 13:27-0400 BP Diastolic 78 mm[Hg] [facility] 12-03-2019 13:27-0400 BP Systolic 128 mm[Hg] [facility] Encounters Encounter Date Encounter Type Care Provider Facility Start: 12-03-2024 ambulatory Makayla Jaime Facility:[facility] Start: 12-03-2024 Encounter for gynecological examination (general) (routine) without abnormal findings Makayla Jaime [facility] Start: 12-03-2024 End: 12-03-2024 ambulatory Errol Mccracken Facility:[facility] [place] Start: 10-05-2024 End: 10-05-2024 Patient encounter procedure Micky Leroy [facility] Work Phone: Start: 10-05-2024 End: 10-05-[address] Errol Mccracken MD Work Phone: [facility] Start: 07-08-2024 ambulatory Makayla Jaime Facility:[facility] Start: 06-10-2024 End: 06-14-[address] Makayla Jaime DO -Nutritional Services Work Phone: Start: 06-10-2024 End: 06-14-[address] Errol Mccracken MD Work Phone: [facility] Work Phone: Start: 05-11-2024 End: 05-14-[address] Makayla Jaime DO -Nutritional Services Work Phone: Start: 05-11-2024 End: 05-14-2024 ambulatory Makayla Jaime Facility:[facility] Start: 04-07-2024 End: 04-16-[address] Makayla Jaime DO -Nutritional Services Work Phone: Start: 04-07-2024 End: 04-16-2024 ambulatory Makayla Jaime Facility:[facility] Start: 03-08-2024 End: 03-08-[address] Makayla Jaime DO -Outpatient Breast Imaging Work Phone: Start: 03-08-2024 End: 03-08-2024 ambulatory Makayla Jaime Facility:[facility] Start: 03-04-2024 End: 03-16-[address] Makayla Jaime -Nutritional Services Work Phone: Start: 03-04-2024 End: 03-16-2024 ambulatory Makayla Jaime Facility:[facility] Start: 01-22-2024 End: 02-14-2024 ambulatory Makayla Jaime Facility:[facility] Start: 07-04-2023 Non-patient / Non-visit Dr. Karina Mccracken Work Phone: [facility] Start: 07-04-2023 End: 07-04-2023 Admission to same day surgery center Dr. Errol Mccracken Work Phone: [facility]-Endoscopy Work Phone: Start: 07-04-2023 End: 07-04-[address] Errol Mccracken Work Phone: [facility] Work Phone: Start: 06-18-2023 End: 06-18-[address] Errol Mccracken Work Phone: [facility] Gastroenterology Work Phone: Start: 03-20-2023 End: 03-20-[address] Errol Mccracken Work Phone: [facility] Work Phone: Start: 03-20-2023 End: 03-20-[address] Errol Mccracken Work Phone: [facility]-Emergency Department Work Phone: Start: 03-07-2023 End: 03-07-[address] Errol Mccracken Work Phone: [facility] Work Phone: Start: 03-07-2023 End: 03-07-[address] Errol Mccracken Work Phone: [facility]-Outpatient Breast Imaging Work Phone: Start: 02-03-2023 End: 02-03-[address] Errol Mccracken Work Phone: [facility] Internal Medicine Work Phone: Start: 12-23-[address] Barney Mccracken Work Phone: [facility] Start: 12-23-2022 End: 12-23-2022 Encounter for general adult medical examination without abnormal findings Dr. Errol Mccracken Work Phone: [facility] Start: 12-23-2022 End: 12-23-[address] Errol Mccracken Work Phone: [facility] Internal Medicine Work Phone: Start: 07-24-2022 End: 07-24-[address] Errol Mccracken Work Phone: [facility] Start: 07-22-2022 End: 07-22-[address] Errol Mccracken Work Phone: [facility] Work Phone: Start: 07-22-2022 End: 07-22-[address] Errol Mccracken Work Phone: [facility] Ultrasound Start: 05-01-2022 End: 05-01-[address] Errol Mccracken Work Phone: [facility] Start: 04-11-2022 End: 04-11-[address] Errol Mccracken Work Phone: [facility] Work Phone: Start: 04-11-2022 End: 04-11-[address] Errol Mccracken Work Phone: [facility]tras[facility] Start: 03-28-2022 End: 03-28-[address] Errol Mccracken Work Phone: [facility] Work Phone: Start: 03-28-2022 End: 03-28-[address] Errol Mccracken Work Phone: [facility]-Laboratory, [facility] Start: 03-27-2022 End: 03-27-[address] Errol Mccracken Work Phone: [facility] Work Phone: Start: 03-27-2022 End: 03-27-[address] [facility] Start: 03-27-2022 End: 03-27-[address] Errol Mccracken Work Phone: [facility] Start: 03-21-2022 End: 03-21-[address] Errol Mccracken Work Phone: [facility] Work Phone: Start: 03-21-2022 End: 03-21-[address] Errol Mccracken Work Phone: [facility]-Laboratory Start: 03-20-2022 End: 03-20-2022 Encounter for general adult medical examination without abnormal findings Dr. Errol Mccracken Work Phone: [facility] Start: 03-20-2022 End: 03-20-[address] Errol Mccracken Work Phone: [facility] Internal Medicine Start: 03-06-2022 End: 03-06-2022 ambulatory [facility] Work Phone: Start: 03-06-2022 End: 03-06-2022 Patient encounter procedure [facility]-Outpatient Breast Imaging Start: 07-05-2021 End: 07-05-[address] Errol Mccracken Work Phone: [facility]-Laboratory, Specimen Start: 07-05-2021 End: 07-05-[address] Errol Mccracken Work Phone: [facility] Start: 01-11-[address] Errol Mccracken Work Phone: [facility] Start: 12-03-2019 End: 12-03-2019 Initial preventive medicine new patient 40-64yrs Jcarlos Fernández Work Phone: [facility] GOLF CADDY Comment on above: Annual physical exam (Primary Dx); Encounter for screening mammogram for breast cancer Procedures Date Procedure Procedure Detail Performing Clinician Start: 03-08-2024 Screening mammography Blanca Mccracken MD Work Phone: Start: 07-04-[address] Barney Mccracken Work Phone: Start: 03-07-2023 Screening mammography Blanca Mccracken Work Phone: Start: 07-22-[address] Sd Mccracken Work Phone: Start: 04-11-[address] Sd Mccracken Work Phone: Start: 04-11-[address] Errol Mccracken Work Phone: Start: 03-06-2022 Screening mammography Start: 12-03-2019 IG PAP/HPV MRNA, RFX TO GENOTYPES 16, 18/45 Jcarlos Fernández Work Phone: Start: 12-03-2019 Urnls dip stick/tabl et rgnt non-auto w/o micrscp Jcarlos Fernández Work Phone: [facility] of Treatment Date Care Activity Detail Author Start: 07-04-2023 Patient discharge [facility] Start: 03-20-2023 [facility] Start: 03-20-2023 Hepatitis B surface antigen measurement [facility] Start: 03-20-2023 Hepatitis C antibody measurement [facility] Start: 12-23-2022 Patient referral [facility] Work Phone: Start: 12-03-2019 End: 12-02-2020 MG Breast Views MAMMO SCREENING WITH KENROY BILATERAL Imaging Routine Encounter for screening mammogram for breast cancer Expected: 12/03/2019, Expires: 12/02/2020 [facility] Comment on above: Expected: 12/03/2019 , Expires: 12/02/2020 Start: 11-16-2019 Influenza vaccination INFLUENZA VACC INE (#1) [facility] Start: 2014 Fasting lipid profile LIPID SCREENIN G [facility] Start: 2014 Screening mammography MAMMOGRA M SCREENING DISCUSSION [facility] Start: 12-23-1995 Screening for malign ant neoplasm of cervix CERVICAL CANCER SCREENING DISCUSSION [facility] Start: 1993 Third diphtheria, tetanus and acellular pertussis (DTaP) vaccination TDAP (ADULT) [facility] Start: 1992 Tetanus vaccination TETANUS [facility] Start: 12-23-1987 HIV screening HIV SCREENING DISCUSSION [facility] Hepatitis B virus surface IgG Ab [Presence] in Serum [facility] HIV 1+2 Ab+HIV1 p24 Ag [Presence] in Serum or Plasma by Immunoassay [facility] IG PAP/HPV MRNA, RFX TO GENOTYPES 16, 18/45 IG PAP/HPV MRNA, RFX TO GENOTYPES 16, 18/45 LAB SEND OUTS Routine 12/03/2019 2:47 PM EDT [facility] MG Breast - bilatera l Screening [facility] Patient Education ED NEEDLE STIC K Health Care Worker [facility] Work Phone: Patient referral [facility] Work Phone: US Pelvis [facility] US Pelvis transvaginal [facility] Immunizations Immunization Date Immunization Notes Care Provider Brennan perez 01-29-2024 influenza, seasonal, injectable, preservative free Dr. Errol Mccracken MD Work Phone: [facility] 12-12-2022 influenza, injectabl e, quadrivalent, preservative free Dr. Errol Mccracken Work Phone: [facility] 12-14-2021 influenza, injectabl e, quadrivalent, preservative free Dr. Errol Mccracken Work Phone: [facility] 12-14-2021 influenza, seasonal, injectable [facility] 02-09-2021 Covid (Pfizer) Dr. Errol Mccracken Work Phone: [facility] 01-19-2021 Covid (Pfizer) Dr. Errol Mccracken Work Phone: [facility] 12-20-2020 influenza, injectabl e, quadrivalent, preservative free Dr. Errol Mccracken Work Phone: [facility] 12-20-2020 influenza, seasonal, injectable Dr. Errol Mccracken Work Phone: [facility] 01-06-2019 influenza virus vaccine, unspecified formulation [facility] Payers Date Payer Category Payer Self-pay [id number] 2023 Unknown [id number] 2019 Unknown [facility] ACCESS [id number] 2019-Present [id number] Unknown [id number] Unknown [id number] Unknown [id number] Unknown [id number] Unknown [id number] Unknown [id number] Unknown [id number] Unknown [id number] Unknown [id number] Unknown [id number] Unknown [id number] Social History Date Type Detail Facility Start: 12-03-2019 End: 07-02-2023 Tobacco smoking status NHIS Never smoker [facility] Start: 12-03-2019 Tobacco use and exposure Never used [facility] Start: 12-03-2019 Alcohol intake Current drinke r of alcohol (finding) [facility] Start: 12-03-2019 History SDOH Alcohol Frequency 2 [facility] Start: 12-03-2019 History SDOH Social Connections Phone 4 [facility] Start: 12-03-2019 History SDOH Social Connections Living 3 [facility] Sex Assigned At Not on file [facility] Start: 07-05-2021 End: 07-02-2023 Tobacco smoking status NHIS Unknown if ever smoked [facility] Start: 1975 Sex Assigned At Female [facility] Start: 06-15-2024 Sex Female (finding) [facility] NEGATED: Highlighted row [facility] Goals Date Patient Goal Desired Activity /State Mental Status Date Assessment Result Facility 07-04-2023 Cognitive function Voice/Name [facility] Work Phone: Clinical Notes 06-15-2020 to 07-04-2023 Note Date & Type Note Facility 07-04-2023 History and physi telma note Note Date/Time July 04, 2023 6:41am [facility] Medical Records Department [address] [place] [address] History & Physical Exam 07/04/23 0641 MR#: [id number] Acct: [id number] Name: LOVE SHANE Rep #:[id number] : 1975 47 From: Eduard Friend DO PCP: Dr. Errol Mccracken MD Status:R EG [facility] Location: [place] [address] History and Physical Date of Admission: 07/04/23 47 F who presents to the office today for initial consult. Pt reports long hx ofheartburn. Worse when eating sour, spicy or fried foods. No dysphagia, nausea, vomiting or abdominal pain. Has not taken any meds rx'd or OTC. No other GI concerns. Needs screening colonscopy. ROS Const Constitutional: No fatigue ENT ENT: No difficulty swallowing Gastro GI: Positive for constipation; No abdominal pain, belching, bloating, change in bowel habits, change in stool character, coffee ground emesis, cramping, diarrhea, heartburn, difficulty swallowing, feeling full early, excessive flatus, incontinent of stools, Vomiting blood/hematemesis, Blood in stool, loose stools, Black,tarry stools, nausea/dyspepsia, pain with swallowing, vomiting or other Musc Musculoskeletal: No joint pain Skin Skin: No yellowing of the eye or itchy eyes Psych Psychiatric: No anxiety and No depression Endo Endocrine: No fatigue Aller/Imm Allergy/Immunologic: No itchy eyes Torres/Lymp Hematologic/Lymphatic: No easy bleeding or easy bruising Exam Const General: cooperative, comfortable and no acute distress Orientation: alert, awake and oriented x3 HENMT Head: normal to inspection, normocephalic and atraumatic Ears: hearing grossly normal bilaterally Eyes General: appearance normal, both eyes and all related structures Neck Neck: normal visual inspection, full ROM and supple Resp Effort & Inspection: normal respiratory effort and able to speak in complete sentences Auscultation: Bilateral: Clear to Auscultation Cardio Rate: regular rate Rhythm: regular rhythm Heart Sounds: S1 normal and S2 normal GI Palpation: soft (Nontender, no palpable organomegaly) Neuro General: patient alert, patient awake, patient oriented x3, moves all extremities and CN's II-XI intact bilaterally Extrem General: no clubbing, cyanosis or edema Psych Appearance: grossly normal Mental Status: mental status grossly normal Mood: congruent mood Affect: normal affect Quality Reporting Tobacco Screening ([facility] 138) Smoking Status: Never smoker Assessment and Plan Assessment and Plan (1) Gastroesophageal reflux disease: Plan: She does have signs and symptoms of gastroesophageal reflux disease due to the fact that she has problems with certain foods including acidic foods and not acidic foods. Since she is undergoing colonoscopy we will perform an upper endoscopy to evaluate her for Stephenson's esophagus, structural disease such as a hiatal hernia, peptic ulcer disease and any signs of villous atrophy. (2) Colon cancer screening: Status: Acute Plan: She will undergo colorectal screening. She was explained alternatives, risk, benefits including not withstanding bleeding, infection, sepsis, perforation, need for emergent surgery and . She will have an ASA of 2. I have examined the patient and the H&P has been reviewed. There are no clinicalchanges since date of exam. 07/04/23 0641 <Electronically signed by Eduard Roblero DO> Cosigner Signature (if applicable): CC: Dr. Errol Mccracken MD; Eduard Roblero DO~ Signed [facility] Work Phone: 1(759) 442-448104-19-2024 Procedure [facility] 07-04-2023 Procedure [facility]04-19-2024 Procedure note [facility]04-19-2024 Procedure [facility] 03-20-2023 Discharge summary Author Charlee Razo [facility] March 20, 2023 2:01pm Note Date/Time March 20, 2023 1: 53pm [facility] Medical Records Department [address] [place] [address] Emergency Department Summary 03/20/23 MR#: [id number] Acct: [id number] Name: LOVE SHANE Rep #:[id number] : 1975 47 From: Charlee Lou PCP: Dr. Errol Mccracken MD Status:R EG ER Location: ED HPI History of Present Illness Chief Complaint: Occup Expose Informant: patient Narrative Narrative: She is a 39-year-old female presenting with work related needlestick to her right hand. 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 She was getting handed a used large bore introducer needle for a vascular procedure when it somehow fell and stuck her right hand. She was wearing 2 pairs of gloves. She immediately took her glovesoff wash her hands with soap and alcohol. She received a single puncture wound at the base of the right index finger. Denies any other complaints. As far sheis aware the patient is low risk for blood-borne pathogens. Was sent to the ER per occupational health protocol for needlestick injury. [facility] Medical History Colon cancer screening Elevated liver enzymes History of hepatitis History of pneumonia Hypertension Preventative health alf Medications multivitamin-ferrous fumarate-folic acid 18 mg-400 mcg tablet (Centrum Complete)1 tab PO DAILY 01/11/21 [History Last Taken Unknown] levonorgestrel 0.15 mg-ethinyl estradiol 0.03 mg tablet 1 tab PO DAILY #84 tabs 05/01/22 [Rx Last Taken Unknown] Allergy/AdvReac Type Severity Reaction Status Date / Time No Known Allergies Allergy Verified 03/20/23 13:19 Family History Mother Arthritis Blood clot in vein Cervical cancer Diabetes Aunt Diabetes Father Myocardial infarction, Onset Age: 46 Grandmother Thyroid disorder Surgical History History of cervical polypectomy Social History Smoking Status: Never smoker alcohol intake: never substance use type: does not use what type of physical activity do you participate in: none seatbelt use: always do you feel safe at home: Yes additional social history: - 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 [employer] ROS ROS ED Constitutional Constitutional ED: Denies chills or fever(s) Gastrointestinal Gastrointestinal: Denies nausea or vomiting Musculoskeletal Musculoskeletal: Denies arthralgias or myalgias Integumentary Reports other Details: Needlestick injury to right hand Hematologic/Lymphatic Hematologic/Lymphatic: Denies easy bleeding or easy bruising EXAM Physical Exam Const Vital Signs: 03/20/23 13:19 Temperature 97.3 F L Temperature Source Temporal Pulse Rate 67 Respiratory Rate 18 Blood Pressure 128/74 H Blood Pressure Mean 92 Pulse Ox 100 Oxygen Delivery Method Room Air Positive well nourished and well developed General Appearance ED: well developed and NAD HEENT Negative for trauma Neck supple Chest Wall inspection of chest normal Resp normal respiratory effort Extremity normal to inspection General Extremety ED: Negative for edema or tenderness General Extremity: Negative for edema Neuro oriented x3 Sensorium / Orientation: alert Psych mental status grossly normal Skin Skin Narrative: Needlestick injury to the palmar aspect of the proximal second finger, no activebleeding. MDM MDM MDM Narrative Medical decision making narrative: Evaluated for occupational needlestick/exposure to blood-borne pathogen. Protocol orders placed by nursing staff. At this time patient is comfortable deferring prophylactic antiviral therapy. Will follow-up with occupational health. Discharge Plan Triage Chief Complaint: Occup Expose ED Provider: Charlee Razo Dx/Rx/DC Orders Clinical Impression: Needle stick injury of finger Instructions: ED NEEDLE STICK Health Care Worker Prescriptions: No Action Centrum Complete 18-400 mg-mcg tablet 1 tab PO DAILY levonorgestrel-ethinyl estrad 0.15-0.03 mg tablet 1 tab PO DAILY Qty: 84 4RF Rx Instructions: take active pills only for 3 months at a time. Primary Care Provider: Errol Mccracken Referrals: Errol Mccracken MD [Primary Care Provider] - [facility] [Non-Staff] - As Needed Disposition Disposition: Home, Self Care What to do if you have Problems For any increased pain, shortness of breath, bleeding, nausea or vomiting, chestpain, or any unexpected problems, contact your Primary Care Provider. Call [facility] ([phone]) or report to the closest Emergency Room. Call 911 if necessary. 03/20/23 1401 <Electronically signed by Charlee Razo DO> Cosigner Signature (if applicable): CC: Dr. Errol Mccracken MD ~ Signed [facility] Work Phone: 1(290) 809-480204-21-2022 NotePap Smear Specimen AdequacyApril 2021 11:23amCommentSatisfactory for evaluation. Endocervical and/or squamous metaplasticcells (endocervical component)are present.[facility] A#[id number] Hospital Work Phone: Comment on above:Satisfactory for evaluation. Endocervical and/or squamous metaplasticcells (endocervical component)are present.02-12-2021 NoteHNO ID: [id number] Author: Buddy Cox MD Service: ? Author Type: Physician Type: Progress Notes Filed: 02/12/2021 5:02 PM Note Text: Love is a 45 year old who presents for an annual gynecologic exam without complaints. Menses: regular on ocp with 3 days of flow Contraception: combined hormonal contraceptives HPV vaccine: N/A Last Pap: 12/03/2019 normal HPV: 12/03/2019 negative - At [facility] History of abnormal pap: No Last mammogram: 2018 - had diagnostic mammogram and breast US Sexually active: Yes Patient concerns for STD exposure: No. Pain with intercourse: No Postcoital bleeding: No Working on scheduling colonoscopy through PCP at [facility] Had flu vaccine Had covid vaccine OB History T0 L1 SAB0 IAB0 Ectopic0 Multiple0 Live Births0 Comment: 1 vaginal delivery [employer] History LMP: 01/19/2021, Having periods Age at Menarche: Age at First : Age at Menopause: [employer] History Comments: Sexual Activity: Yes; Male Contraception: Pill PAST MEDICAL HISTORY Diagnosis Date - Endometrial polyp PAST SURGICAL HISTORY Procedure Laterality Date - EXCISION UTERINE MASS VAGINALLY Patient reprots excsion of uterine polyp FAMILY HISTORY Problem Relation Age of Onset - Blood Clots Mother - Cervical Cancer Mother - other (cad) Father - other (HI at 47) Father - other (liver diseas) Maternal Grandmother - other (HTN) Paternal Grandmother - other (lung cancer) Paternal Grandfather SOCIAL HISTORY Social History Tobacco Use - Smoking status: Never Smoker - Smokeless tobacco: Never Used Vaping Use - Vaping Use: Never used Substance Use Topics - Alcohol use: Yes Comment: rare - Drug use: Never REVIEW OF SYSTEMS Abdomen: No abdominal pain, nausea, vomiting, diarrhea, or constipation. No bloating, early satiety, indigestion, or increased flatulence. Bladder: No dysuria, gross hematuria, urinary frequency, urinary urgency, or incontinence. Breast: No breast lumps, nipple d/c, overlying skin changes, redness or skin retraction. Allergies and current medication updated:Yes EXAM: BP 120/80 Ht 5' 5.5" (1.66m) Wt 196 lb (88.9kg) LMP 01/19/2021 BMI 32.11 kg/(m2). GENERAL: pleasant, female in no apparent distress HEENT: Normocephalic, atraumatic, mucus membranes moist and no lesions NECK: full range of motion DERMATOLOGY: Normal, without lesions, non-icteric and non-hirsute BREAST: soft, non-tender, symmetric, no dominant mass, normal nipple-areolar complex, no lymphadenopathy and no nipple discharge CHEST: Normal inspiratory effort ABDOMEN: soft, non-tender and no masses PELVIC: external genitalia normal, normal Bartholin's glands, urethra, Pickwick's glands, no vulvar lesions, no cervical lesions, good vaginal support, physiologic discharge present, normal appearing perineal body and perianal region BIMANUAL: uterus normal size, shape and consistency, no adnexal masses and non-tender RECTOVAGINAL: deferred. NEURO: exam grossly non-focal EXTREMITIES: normal ASSESSMENT/PLAN: 1) Health maintenance: Pap/HPV up to date. Mammogram - scheduled. Nutrition, exercise and routine health maintenance exams reviewed. Discussed colon cancer screening and she is scheduling through PCP. 2) Contraception: combined hormonal contraceptives. Contraceptive options reviewed and information provided. 3) STD screening: Declined STD check. 4) Follow up one year or sooner as needed Buddy Cox, [facility] NotePatient Outreach (INTMMN) LOVE SHANE V ([id number]) 1975 F Date Time Provider Department 10/06/20 BRITTANY FRANZ INTMMN During your visit today, we recorded the following information about you: Allergies As of Date: 10/06/2020 (No Known Allergies) Date Reviewed: 01/08/2019 Reviewed by: Kamla Longo Ma - Fully Assessed Visit Diagnosis:Encounter for screening mammogram for breast cancer [Z12.31] Order(s):MINAL SCREENING [[id number]] Order #: [id number] FUTURE Prescriptions as of 10/09/2020 - MEDICATION, NON-DATABASE Ethinylestradiol+Gestodene - Levonorgestrel-Ethinyl Estrad (AVIANE) 0.1mg - 20mcg per tablet Take 1 tablet by mouth once daily. Problem List As Of Date: 10/06/2020 (None) Encounter Status:Closed by ZANE LINO on 10/09/20[facility] 06-15-2020 NoteHNO ID: [id number] Author: Josefa King (Aisha) Florinda Service: ? Author Type: Patient Table Hand Type: Progress Notes Filed: 06/15/2020 2:04 PM Note Text: POPULATION HEALTH NAVIGATION OUTREACH Action/FYI Mammogram screening Contact made with patient or family member? NO Pt identified by name and : NO Outreach Outcome/Action Unable to reach patient: Left message Labs on the Got message sent Reason for Outreach Care Gap or Scheduling/Wellness visits Payer: Payor: MERE / Plan: BLUE CARD PPO / Product Type: PPO / Care Gap Reviewed:: Breast Cancer screening Reminder: Reminder note to check Health Maintenance for items below Health Maintenance items due: HIV SCREENING Completed DTAP,TDAP,TD(1 - Tdap) Completed PAP TESTING Completed HPV TESTING Completed DEPRESSION SCREENING due on 01/07/2020 MAMMOGRAM due on 01/09/2020 Advanced Directives Completed: Have you ever planned for future healthcare decisions with a power of commonwealth attorney, living will, or advance directives? Referrals: N/A Message Sent to Practice: NO Navigation Signature: AISHA Ragland June 15, 2020 2:03 [facility]04-01-2021 NotePatient Outreach (FAMPBR) LOVE SHANE V ([id number]) 1975 F Date Time Provider Department 06/15/20 JOSEFA ANDERSON (PSS) FAMPBR During your visit today, we recorded the following information about you: AISHA Ragland 06/15/2020 2:04 PM Signed POPULATION HEALTH NAVIGATION OUTREACH Action/FYI Mammogram screening Contact made with patient or family member? NO Pt identified by name and : NO Outreach Outcome/Action Unable to reach patient: Left message MyChart message sent Reason for Outreach Care Gap or Scheduling/Wellness visits Payer: Payor: MERE / Plan: BLUE CARD PPO / Product Type: PPO / Care Gap Reviewed:: Breast Cancer screening Reminder: Reminder note to check Health Maintenance for items below Health Maintenance items due: HIV SCREENING Completed DTAP,TDAP,TD(1 - Tdap) Completed PAP TESTING Completed HPV TESTING Completed DEPRESSION SCREENING due on 01/07/2020 MAMMOGRAM due on 01/09/2020 Advanced Directives Completed: Have you ever planned for future healthcare decisions with a power of commonwealth attorney, living will, or advance directives? Referrals: N/A Message Sent to Practice: NO Navigation Signature: AISHA Ragland June 15, 2020 2:03 PM Allergies As of Date: 06/15/2020 (No Known Allergies) Date Reviewed: 01/08/2019 Reviewed by: Kamla Longo Ma - Fully Assessed Reason for Visit: Population Health Navigation Outreach [3910] Cmt: deferred care Prescriptions as of 06/15/2020 Sig: MEDICATION, NON-DATABASE Ethinylestradiol+Gestodene LEVONORGESTREL-ETHINYL ESTRAD* Take 1 tablet by mouth once d* Problem List As Of Date: 06/15/2020 (None) Encounter Status:Closed by JOSEFA ANDERSON on 06/15/20[facility]No assessment information availableWMercer [facility] Work Phone: Evaluation note* Diagnosis Onset Date Resolution Status Preventative health care acu te Hypertension chronic Abnormal uterine bleeding (AUB) acute History of uterine fibroid a [facility] Work Phone: Evaluation note* Diagnosis Onset Date Resolution Status Abnormal uterine bleeding (AUB) acute History of uterine fibroid a cute History of uterine fibroid a cute Well woman exam acute [facility] Work Phone: Evaluation note* Diagnosis Onset Date Resolution Status Colon cancer screening acute Preventative health care acu te Hypertension chronic Hypertension chronic [facility] Work Phone: Evaluation note* Diagnosis Onset Date Resolution Status Colon cancer screening acute Preventative health care acu te Hypertension chronic Hypertension chronic Needle stick injury of finger acute [facility] Work Phone: Evaluation note* Diagnosis Onset Date Resolution Status Needle stick injury of finger acute Colon cancer screening acute Gastroesophageal reflux disease noneactive [facility] Work Phone: Reason for referral (narrative)No reason for referral information availableWMercer County Community Hospital Work Phone: Summary Purpose Family History No Family History Records Found Relationship Condition Age at Onset Recorded Date/T deniz mother Arthritis Unknown Venous thrombosis Unknown Malignant neoplasm of cervix Unknown Diabetes mellitus Unknown aunt Diabetes mellitus Unknown father Myocardial infarction 46 grandmother Disorder of thyroid Unknown Advance Directives No Advanced Directives Records Found Advance Directive Response Recorded Date/ Time Living Will No March 20 1:53pm Power of Community Recreation Programmer No March 20, 1:53pm Advance Directive Response Recorded Date/ Time Living Will No July 02, 2023 3:45pm Power of Community Recreation Programmer No July 01 3:45pm Advance Directive Response Recorded Date/ Time Living Will No February 14 1:36am Do you have a Healthcare Power of Community Recreation Programmer? No February 15, 2024 1:36am Living Will No April 17 2:52am Do you have a Healthcare Power of Community Recreation Programmer? No April 17, 2024 2:52am Living Will No July 02, 2023 3:45pm Do you have a Healthcare Power of Community Recreation Programmer? No July 02, 2023 3:45pm Living Will No March 17 1:20am Do you have a Healthcare Power of Community Recreation Programmer? No March 17, 2024 1:20am Living Will No May 15, 2024 2:11am Do you have a Healthcare Power of Community Recreation Programmer? No May 15, 2024 2:11am Advance Directive Response Recorded Date/ Time Living Will No May 15, 2024 2:11am Do you have a Healthcare Power of Community Recreation Programmer? No May 15, 2024 2:11am Reason for Referral Status Reason Specialty Diagnoses / Procedures Referred By Contact Referred To Contact Auth Not Needed Mammography Diagnoses Encounter for screening mammogram for breast cancer Procedures MAMMO SCREENING WITH [facility] Jcarlos Fernández MD [address] [place] [address] [facility] [address] [place] [address] History of Present Illness * Tamie Blackmon LPN - 12/03/2019 1:30 PM EDT Breast Health Screening Breast concerns or complaints? No Last mammogram: 02/2019 She reports that she is not performing self breast examination regularly. History of Previous breast biopsy or other breast surgery? No Breast cancer in the family? No Osteoporosis Screening She reports that she is not participating in regular exercise (NA). She is taking calcium and vitamin D supplements. She has not had a bone density study (result na). History of Osteoporosis? No Osteoporosis in the family? No Genitourinary Screening Last Pap: unsure if she has had Abnormal bleeding? No Pelvic pressure or fullness? No Urinary complaints or concerns? No Pelvic prolapse symptoms? No Fecal incontinence or concerns? No Dyspareunia or sexual concerns? No Premenstrual symptoms? No Other comments: NA * Jcarlos Fernández MD - 12/03/2019 1:30 PM EDTSummary: 43 y.o. presents for annual exam. No issues. Pap collected. [facility] - [facility] Woman Visit Ms. Love Shane is a 43 y.o. who presents for her annual exam. Ms. Shane denies any health issues. She was [place] the [place] a [place] ago and is seeking primary care. Her ivorian is excellent and she does not require an credit risk specialist. 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 Mammogram: Reports normal a little less than 1 year ago. Colonoscopy: Due at age 49 Menstrual History Menarche: Age 11 Menopause: N/A Menses: Every month, with 2-3 days of light to heavy bleeding. Last menstrual period: Patient's last menstrual period was 11/12/2019 (approximate). The patient reports that she is having regular and normal menstrual cycles. Sexuality The patient is sexually active. Social History Substance and Sexual Activity Sexual Activity Yes Partners: Male control/protection: Pill History of sexually transmitted infections? No History of high risk sexual behavior? No History of HIV and hepatitis testing in the past year? No. Declined testing today. Health and Safety The patient reports that there is not intimate partner violence in her life. Wears seatbelt?: Yes Immunizations up to date? Yes REVIEW OF SYSTEMS Review of Systems Constitutional: Negative for activity change, appetite change, chills, fatigue, fever and unexpected weight change. HENT: Negative for trouble swallowing. Respiratory: Negative for cough and shortness of breath. Cardiovascular: Negative for chest pain, palpitations and leg swelling. Gastrointestinal: Negative for constipation, diarrhea, nausea and vomiting. Endocrine: Negative for cold intolerance and heat intolerance. Genitourinary: Negative for dysuria, menstrual problem, pelvic pain, vaginal bleeding, vaginal discharge and vaginal pain. Musculoskeletal: Negative for neck pain. Skin: Negative. Neurological: Positive for headaches (on second day of period). Negative for weakness. Psychiatric/Behavioral: The patient is not nervous/anxious. PHYSICAL EXAMINATION BP 128/78 (BP Location: Right arm, BP Position: Sitting) Temp 98 F (36.7 C) (Temporal) Wt 190 lb (86.2 kg) Smoking Status Never Smoker Physical Exam Exam conducted with a computerized mill recorder present. Constitutional: General: She is awake. She is not in acute distress. Appearance: Normal appearance. She is well-developed and normal weight. Interventions: Face mask in place. Comments: Wearing facemask for coronavirus SARS-2 prophylaxis HENT: Head: Normocephalic and atraumatic. Mouth/Throat: Mouth: Mucous membranes are moist. Pharynx: Oropharynx is clear. Eyes: Extraocular Movements: Extraocular movements intact. Conjunctiva/sclera: Conjunctivae normal. Neck: Musculoskeletal: Neck supple. Thyroid: No thyroid mass, thyromegaly or thyroid tenderness. Cardiovascular: Rate and Rhythm: Normal rate and regular rhythm. Heart sounds: Normal heart sounds. No murmur. No friction rub. No gallop. Pulmonary: Effort: Pulmonary effort is normal. Breath sounds: Normal breath sounds. No wheezing, rhonchi or rales. Chest: Breasts: Chapo Score is 5. Right: Normal. No inverted nipple, mass, nipple discharge, skin change or tenderness. Left: Normal. No inverted nipple, mass, nipple discharge, skin change or tenderness. Abdominal: General: Abdomen is flat. Bowel sounds are normal. There is no distension. Palpations: Abdomen is soft. Tenderness: There is no abdominal tenderness. There is no guarding or rebound. Genitourinary: General: Normal vulva. Exam position: Lithotomy position. Chapo stage (genital): 5. Labia: Right: No rash, tenderness or lesion. Left: No rash, tenderness or lesion. Vagina: Normal. No vaginal discharge, erythema, bleeding or lesions. Cervix: Normal. Uterus: Normal. Adnexa: Right adnexa normal and left adnexa normal. Right: No mass, tenderness or fullness. Left: No mass, tenderness or fullness. Comments: Pap collected Musculoskeletal: Normal range of motion. Right lower leg: No edema. Left lower leg: No edema. Comments: No calf tenderness bilaterally Lymphadenopathy: Head: Right side of head: No submandibular adenopathy. Left side of head: No submandibular adenopathy. Cervical: No cervical adenopathy. Upper Body: Right upper body: No supraclavicular or axillary adenopathy. Left upper body: No supraclavicular or axillary adenopathy. Lower Body: No right inguinal adenopathy. No left inguinal adenopathy. Skin: General: Skin is warm and dry. Neurological: General: No focal deficit present. Mental Status: She is alert and oriented to person, place, and time. Cranial Nerves: Cranial nerves are intact. Sensory: Sensation is intact. Motor: Motor function is intact. Coordination: Coordination is intact. Gait: Gait is intact. Deep Tendon Reflexes: Reflex Scores: Patellar reflexes are 1+ on the right side and 1+ on the left side. Psychiatric: Mood and Affect: Mood normal. Behavior: Behavior normal. Behavior is cooperative. Rectal exam declined ASSESSMENT AND PLAN Ms. Love Shane is a 43 y.o. who presents for her annual exam. Pap collected Love Shane was counseled o alternative contraceptive methods and desires to continue OCPs. Schedule return in 1 year for annual exam. No future appointments. 12/03/2019 Jcarlos Fernández MD documented in this encounter Assessments Diagnosis Annual physical exam- Primary Routine general medical examination at a health care facility Encounter for screening mammogram for breast cancer Chief Complaint and Reason for Visit Chief Complaint Annual (CHAPLAIN) Chief Complaint SCREENING Chief Complaint SCREENING YEARLY EORDER Abnormal Bleeding Reason for Visit Preventative health care Hypertension Abnormal uterine bleeding (AUB) History of uterine fibroid Chief Complaint SCREENING YEARLY EORDER Abnormal Bleeding Personal history of other benign neoplasm Reason for Visit Preventative health care Hypertension Abnormal uterine bleeding (AUB) History of uterine fibroid Chief Complaint Personal history of other benign neoplasm OPTIONS FOR FIBROID MANAGEMENT D25.9 Annual (CHAPLAIN) , 3 mo fu Reason for Visit Abnormal uterine ble eding (AUB) History of uterine fibroid History of uterine fibroid Well woman exam Chief Complaint [employer]S 1 M FU SCREENING Reason for Visit Colon cancer screeni ng Preventative health care Hypertension Hypertension Chief Complaint [employer] LABS 1 M FU SCREENING needle stick in [place] Reason for Visit Colon cancer screeni Preventative health care Hypertension Hypertension Needle stick injury of finger Chief Complaint SCREENING needle stick in [place] Gastroesophageal reflux disease (GERD) Reason for Visit Needle stick injury of finger Colon cancer screening Gastroesophageal reflux disease Chief Complaint Admit Date OBESITY March 04, 2024 9:27am SCREENING March 08, 2024 3:36pm OBESITY April 07, 2024 9 :18am OBESITY May 11, 2024 4:25pm OBESITY June 10, 2024 9:2 5am Chief Complaint Admit Date OBESITY June 10, 2024 9:2 5am RED L EYE October 05, 2024 8:19 am Additional Source Comments INFORMATION SOURCE (unrecogn ized section and content) DATE CREATED AUTHOR 08/01/2019 [facility] DATE CREATED AUTHOR AUTHOR'S ORGANIZ ATION 12/09/2019 [facility] DATE CREATED AUTHOR AUTHOR'S ORGANIZ ATION 04/26/2021 [facility] DATE CREATED AUTHOR AUTHOR'S ORGANIZ ATION 12/05/2024 [facility] Reason for Visit (unrecogniz ed section and content) Reason Comments 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 Status Reason Specialty Diagnoses / Procedures Referred By Contact Referred To Contact Pending Review GOLF CADDY Diagnoses Encounter to establish care System, Provider Not In Jcarlos Fernández MD [address] [place] [address] Goals (unrecognized section and content) Goals may be documented in a n alternate sectionGoals may be documented in an alternate sectionGoals may be documented in an alternate sectionGoals may be documented in an alternate sectionGoals may be documented in an alternate sectionGoals may be documented in an alternate sectionGoals may be documented in an alternate sectionGoals may be documented in an alternate sectionGoals may be documented in an alternate sectionGoals may be documented in an alternate sectionGoals may be documented in an alternate section Care Teams (unrecognized sec tion and content) Team Status: Active Member Role Status Dates Dr. Errol Mccracken MD Primary Care Provider Active Team Status: Inactive Member Role Status Dates Dr. Errol Mccracken MD Primary Care P rovijean, Attending Provider, Referring Provider Active Team Status: Inactive Member Role Status Dates Dr. Errol Mccracken MD Primary Care Provider, Refer ring Provider Active Rosangela Brar TELESALES MANAGER, TELESALES MANAGER-C Attending Provider Active Team Status: Inactive Member Role Status Dates Dr. Errol Mccracken MD Primary Care Provider Active Dr. Ely Arreola MD Attending Provider, Referr ing Provider Active Team Status: Active Member Role Status Dates Dr. Errol Mccracken MD Primary Care Provider Active Rosangela Brar TELESALES MANAGER, TELESALES MANAGER-C Attending Provider, Referring Provider Active Team Status: Active Member Role Status Dates Dr. Errol Mccracken MD Primary Care P rovider, Attending Provider, Referring Provider Active Team Status: Inactive Member Role Status Dates Dr. Errol Mccracken MD Primary Care Provider Active Rosangela Brar TELESALES MANAGER, TELESALES MANAGER-C Attending Provider, Referring Provider Active Team Status: Inactive Member Role Status Dates Dr. Errol Mccracken MD Primary Care Provider, Refer ring Provider Active Dr. Makayla Jaime DO Attending Provider Activ e Team Status: Inactive Member Role Status Dates Dr. Errol Mccracken MD Primary Care Provider Active Dr. Makayla Jamie DO Attending Provider, Refe rring Provider Active Team Status: Active Member Role Status Dates Dr. Errol Mccracken MD Primary Care Provider Active Health Risk Assessment Attending Provider, Referring P rovider Active Team Status: Inactive Member Role Status Dates Dr. Errol Mccracken MD Primary Care Provider Active Dr. Charlee Razo DO Attending Provider Active Team Status: Inactive Member Role Status Dates Dr. Errol Mccracken MD Primary Care Provider, Refer ring Provider Active Dr. Eduard Roblero DO Attending Provider Active Team Status: Active Member Role Status Dates Dr. Errol Mccracken MD Primary Care Provider, Refer ring Provider Active Dr. Eduard Roblero DO Attending Provider, Other Prov ider Active Team Status: Inactive Member Role Status Dates Dr. Errol Mccracken MD Primary Care Provider Active Start: March 04, 2024 End: March 16, 2024 Dr. Makayla Jaime DO Attending Provider Activ e Start: March 04, 2024 End: March 16, 2024 Dr. Makayla Jaime DO Referring Provider Activ e Start: March 04, 2024 End: March 16, 2024 Team Status: Inactive Member Role Status Dates Dr. Errol Mccracken MD Primary Care Provider Active Start: March 08, 2024 End: March 08, 2024 Dr. Makayla Jaime DO Attending Provider Activ e Start: March 08, 2024 End: March 08, 2024 Dr. Makayla Jaime DO Referring Provider Activ e Start: March 08, 2024 End: March 08, 2024 Team Status: Inactive Member Role Status Dates Dr. Errol Mccracken MD Primary Care Provider Active Start: April 07, 2024 End: April 16, 2024 Dr. Makayla Jaime DO Attending Provider Activ e Start: April 07, 2024 End: April 16, 2024 Dr. Makayla Jaime DO Referring Provider Activ e Start: April 07, 2024 End: April 16, 2024 Team Status: Inactive Member Role Status Dates Dr. Errol Mccracken MD Primary Care Provider Active Start: May 11, 2024 End: May 14, 2024 Dr. Makayla Jaime DO Attending Provider Activ e Start: May 11, 2024 End: May 14, 2024 Dr. Makayla Jaime DO Referring Provider Activ e Start: May 11, 2024 End: May 14, 2024 Team Status: Inactive Member Role Status Dates Dr. Errol Mccracken MD Primary Care Provider Active Start: June 10, 2024 End: June 14, 2024 Dr. Makayla Jaime DO Attending Provider Activ e Start: June 10, 2024 End: June 14, 2024 Dr. Makayla Jaime DO Referring Provider Activ e Start: June 10, 2024 End: June 14, 2024 Team Status: Active Member Role/Relationship Status Dates Dr. Errol Mccracken MD Primary Care Provider Active Team Status: Inactive Member Role/Relationship Status Dates Dr. Errol Mccracken MD Primary Care Provider Active Start: June 10, 2024 End: June 14, 2024 Dr. Makayla Jaime DO Attending Provider Activ e Start: June 10, 2024 End: June 14, 2024 Dr. Makayla Jaime DO Referring Provider Activ e Start: June 10, 2024 End: June 14, 2024 Team Status: Inactive Member Role/Relationship Status Dates Dr. Errol Mccracken MD Primary Care Provider Active Start: October 05, 2024 End: October 05, 2024 Dr. Errol Mccracken MD Referring Provider Active Start: October 05, 2024 End: October 05, 2024 Micky Leroy PA, PA Attending Provider Active Start: October 05, 2024 End: October 05, 2024 FOR RECORDS PERTAINING TO PATIENTS WHO ARE OR HAVE BEEN ENROLLED IN A CHEMICAL DEPENDENCY/SUBSTANCEABUSE PROGRAM, SOME INFORMATION MAY BE OMITTED. This clinical summary was aggregated from multiple sources. Caution should be exercised in using it in the provision of clinical care. This summary normalizes information from multiple sources, and as a consequence, information in this document may materially change the coding, format and clinical context of patient data. In addition, data may be omitted in some cases. CLINICAL DECISIONS SHOULD BE BASED ON THE PRIMARY CLINICAL RECORDS. [facility]. provides no warranty or guarantee of the accuracy or completeness of information in this document.
[2024-12-07 09:00] LABS: Vitamin D,25 Hydroxy 11.9 ng/mL (30-100)
== END | disposition home or self-care (01) ==
LOC: LAB 06:28
PROVIDERS: PCP Internal Medicine; Referring Provider Obstetrics & Gynecology; Visit Provider Obstetrics & Gynecology
DX: Z13.29 Encounter for screening for other suspected endocrine disorder (principal); I10 Essential (primary) hypertension; Z13.220 Encounter for screening for lipoid disorders; Z13.1 Encounter for screening for diabetes mellitus
CPT/HCPCS: 36415; 82306; 84443